=== PATIENT | female | born 1955 | race Caucasian/White ===

== ENCOUNTER 2016-07-15 00:10 | Inpatient (IN) | payer MEDICARE, OTHER ==
[~2016-07-15] VITALS: Ht 170.2 cm; Wt 88.8 kg
--- NOTE | 2016-07-15 01:37 | ED ORDER SUMMARY ---
..... Patient: VICTORIA CONNELL OrderSheet [facility] VisitID: [id number] [address] [place] [address] 61y, F Registration Date/Time: 07/15/2016 ORDER SHEET Weight: 102.0 kg Allergies: Ibuprofen, Paxil, PROzac, Tylenol, Ultram GENERAL ORDERS: Breathalyzer (00:26 07/15/2016 PHutchinson DO) (0:36 EBonham) Hip 2V Left w AP Pelvis Urgent (00:30 07/15/2016 PHutchinson DO) (0:36 EBonham) Chest 2V Urgent (02:24 07/15/2016 PHutchinson DO) (Ack 2:37 CHategekimana) (2:38 CBradburn R.N.) Electronics Supervisor (Continuous) (02:07/15/2016 PHutchinson DO) (2:29 CBradburn R.N.) UA-Culture if indicated Urgent (02:07/15/2016 PHutchinson DO) (Ack 2:37 CHategekimana) (3:00 CBradburn R.N.) Cardiac Panel Stat (02:07/15/2016 PHutchinson DO) (Ack 2:37 CHategekimana) (2:38 CBradburn R.N.) BNP Urgent (02:07/15/2016 PHutchinson DO) (Ack 2:37 CHategekimana) (2:38 CBradburn R.N.) Amylase Urgent (02:07/15/2016 PHutchinson DO) (Ack 2:37 CHategekimana) (2:38 CBradburn R.N.) PT with INR Urgent (02:07/15/2016 PHutchinson DO) (Ack 2:37 CHategekimana) (2:38 CBradburn R.N.) Urine Drug Screen Urgent (02:07/15/2016 PHutchinson DO) (Ack 2:37 CHategekimana) (3:00 CBradburn R.N.) TSH Urgent (02:07/15/2016 PHutchinson DO) (Ack 2:37 CHategekimana) (2:38 CBradburn R.N.) Ethyl Alcohol Urgent (02:25 07/15/2016 PHutchinson DO) (Ack 2:37 CHategekimana) (2:38 CBradburn R.N.) Lipase Urgent (02:25 07/15/2016 PHutchinson DO) (Ack 2:37 CHategekimana) (2:38 CBradburn R.N.) ABG (G) Urgent (02:25 07/15/2016 PHutchinson DO) (Ack 2:37 CHategekimana) (2:48 CBradburn R.N.) Oxygen (2 L/min) (NC) (02:25 07/15/2016 PHutchinson DO) (2:29 CBradburn R.N.) Pulse oximeter (02:25 07/15/2016 PHutchinson DO) (2:29 CBradburn R.N.) EKG - ER Stat (02:25 07/15/2016 PHutchinson DO) (2:36 CHategekimana) Vitals (02:25 07/15/2016 PHutchinson DO) (2:29 CBradburn R.N.) PCT (Procalcitonin) Urgent (02:50 07/15/2016 PHutchinson DO) (3:01 CBradburn R.N.) Old Records (from [facility] [place]) (02:51 07/15/2016 PHutchinson DO) (3:04 CHategekimana) D-Dimer Urgent (02:51 07/15/2016 PHutchinson DO) (3:01 CBradburn R.N.) CTA Thorax w Cont (No) (BUN and Cr normal) (elevated d-dimer; left cp, hypotension; hypoxia) Urgent (03:36 07/15/2016 PHutchinson DO) (Ack 3:42 CHategekimana) (4:04 CBradburn R.N.) Call (Place call to): (Dr Hanna) (05:04 07/15/2016 PHutchinson DO) (5:10 CHategekimana) Ammonia Level Urgent (05:04 07/15/2016 PHutchinson DO) (Ack 5:11 CHategekimana) (6:05 Kang R.N.) MEDICATION ORDERS: IV FLUIDS: IV NS : initial bolus 1000 mL (1000 mL/hr), then 500 mL/hr for X2 (NOW) (02:25 07/15/2016 Pascale ROGERS) (Ack 2:45 CBradwayne R.N.) (2:48 Kang R.N.) ORDER SHEET NOTES: [Electronically signed by Yvette Weston R.N. (06:33 07/15/2016)] [Electronically signed by Simon Wnyne DO (17:55 07/15/2016)] [Electronically locked/signed by Yvette Weston R.N. (06:33 07/15/2016)]
--- NOTE | 2016-07-15 01:37 | ED CLINICAL REPORT ---
Clinical Report - Physicians/Mid Levels [facility] [address] [place] [address] 07/15/2016 0:17 Patient: VICTORIA CONNELL Time Seen: 00:24. Arrived- By ambulance. Historian- patient and EMS personnel. HISTORY OF PRESENT ILLNESS Chief Complaint: FALL and Intoxicated. Location of injuries- left hip. The injury occurred just prior to arrival. Fell. Occurred at home. The patient complains of moderate pain. No blow to the head, neck pain, loss of consciousness or seizure. Not dazed. REVIEW OF SYSTEMS The patient complains of pain on weight bearing. No numbness, dizziness, loss of vision, hearing loss or difficulty breathing. No weakness, headache, nausea, abdominal pain or laceration. No fever, vomiting or urinary problems. The patient has had chest pain (she had recent rib fractures). All systems otherwise negative, except as recorded above. PAST HISTORY PROBLEMS: Anxiety Reaction. PTSD. Mental Illness. Anemia. Hep C with cirrhosis and end stage liver disease with esophageal varices. Changed Mental Status Spinal Fracture. Chronic Back Pain. UTI - Urinary Tract Infection (multiple). Fibromyalgia. Hepatitis. TMJ syndrome. Arthritis. Bipolar Disorder. Hypertension. Diverticulitis. Narcotic Withdrawal. Rib fractures - seen at [facility] for this 1 1/2 months ago per pt SURGERIES: Cholecystectomy. Colonoscopy. Endoscopy. Hysterectomy. Shoulder Surgery Appendectomy. Medications: ASA Oral 81 mg. Atenolol Oral (Tablet 25 mg) 3 tablets, 2x a day. LamoTRIgine Oral 1 200mg tab am 2 tabs HS. Lidocaine patch 12h on 12h off. Lisinopril Oral 40 mg, daily. Propranolol HCl Oral 20 mg, 2x a day. Solifenacin Succinate Oral 10mg, bid. TraZODone HCl Oral. Allergies: Ibuprofen. (has inflammation of liver) Paxil. PROzac. Tylenol. Ultram. (liver toxicity caused coma). SOCIAL HISTORY Smoker- current status unknown. Alcohol use. Patient is a longstanding alcoholic. No drug use. Is a local resident. FAMILY HISTORY Hypertension in grandparent; other family history (Substance abuse) in first-degree relative (mother and father). ADDITIONAL NOTES The nursing notes have been reviewed. PHYSICAL EXAM Vital Signs: 07/15/2016 00:32 BP: 95/52. HR: 70. RR: 16. O2 saturation: 93%. Appearance: Alert. Oriented X3. Patient in mild distress. (Strong odor of the metabolic breakdown products of alcohol on her breath). Head: Head non-tender. No swelling of head. No Kirk's sign or raccoon eyes. Eyes: Pupils equal, round and reactive to light. EOM intact. ENT: No dental injury. Neck: No pain with movement of head/neck. Painless ROM. Non-tender. Non-tender. No vertebral tenderness. CVS: Heart sounds normal. Pulses normal. Respiratory: Chest wall injury. Breath sounds normal. No decreased breath sounds, rales, wheezes, rhonchi or crepitus. Abdomen: No visible injury. Soft and nontender. No mass. Back: No tenderness. ROM normal. No vertebral point tenderness. Skin: Skin intact. Skin warm and dry. Extremities: Pelvis stable. Left hip: moderate tenderness, mild swelling and medium sized ecchymosis located in the lateral aspect of the hip. Neurovascular intact distally. No erythema, laceration, abrasion, puncture wound or foreign body. No deformity. No limitation in ROM. The left leg is not shortened, externally rotated, internally rotated, flexed or adducted. The left leg is not abducted. Neuro: Sonja Coma Scale: 15- eyes open spontaneously (4); best verbal response- oriented x 3 (5); best motor response- obeys commands (6). Oriented X 3. No motor deficit. No sensory deficit. LABS, X-RAYS, AND EKG EKG: EKG time: (02:35). Normal sinus rhythm. Rate: 65. First-degree atrioventricular block. Normal QRS complex. Normal axis. Non-specific ST segment / T wave abnormalities. Non-specific T wave flattening in lead III, aVL, aVF, V2 and V3. EKG unchanged when compared with prior EKG. (similar to 31 AUG 2012). The study has been interpreted contemporaneously by me. The EKG appears to be a good tracing. Artifact present. Lt Hip X-ray: No fracture. Normal alignment. No bony lesion, air in the soft tissue or foreign body. Soft tissues normal. Joint spaces normal. Views: 2 view hip series. Technique: good. The X-rays were interpreted contemporaneously by me. CTA Pulmonary Arteries: Parenchymal abnormality present (scaring and atelectasis). Great vessels normal. No evidence of pulmonary embolism. Normal heart size. Mediastinum normal. No infiltrate. No evidence of PE. Small Hiatal hernia. Probable cirrhosis. The CTA was performed with contrast. The study was independently viewed by me, interpreted by the radiologist and discussed with the radiologist. Laboratory Tests: UA-Culture if indicated: (SHAKIR: 07/15/2016 02:56) ( [facility] 07/15/2016 03:22) Final results Test Result Flag Units (Reference) URINE COLOR YELLOW URINE APPEARANCE CLEAR URINE GLUCOSE NEGATIVE (NEGATIVE) URINE BILIRUBIN NEGATIVE (NEGATIVE) URINE KETONE NEGATIVE (NEGATIVE) URINE SPECIFIC GRAVITY <= 1.005 L (1.010-1.030) URINE PH 6.0 (5.0-8.0) URINE PROTEIN NEGATIVE (NEGATIVE) URINE UROBILINOGEN 0.2 EU/dL (0.2-1.0) URINE NITRITE NEGATIVE (NEGATIVE) URINE BLOOD NEGATIVE (NEGATIVE) URINE LEUK ESTERASE NEGATIVE (NEGATIVE) URINE RBC NONE SEEN rbc/hpf (0-1) URINE WBC 0-1 wbc/hpf (0-1) URINE EPITHELIAL CELLS 1-3 EPI/hpf (0-5) URINE BACTERIA TRACE (<1+) (NONE SEEN) URINE COMMENT CULT NOT INDICATED 15-20 HYALINE CASTS. 1+ AMORPHOUS URATES.URINE CULTURES ARE SET-UP BASED ON THE FOLLOWING CRITERIA:POSITIVE NITRITEPOSITIVE LEUKOCYTE ESTERASEGREATER THAN 10 WHITE BLOOD CELLSMODERATE (2+) OR GREATER BACTERIA CBC w Diff: (SHAKIR: 07/15/2016 02:33) ( [facility] 07/15/2016 02:47) Final results Test Result Flag Units (Reference) WHITE BLOOD COUNT 3.3 L K/uL (4.5-11.5) RED BLOOD COUNT 3.63 L M/uL (4.00-5.20) HEMOGLOBIN 12.3 gm/dL (12.0-16.0) HEMATOCRIT 36.0 % (36.0-46.0) MEAN CELL VOLUME 99 fL (80-100) MEAN CORPUSCULAR HGB 34 pg (26-34) MEAN CORPUSCULAR HGB CONC 34 g/dL (31-37) RED CELL DISTRIBUTION WIDTH 16.1 H % (11.6-14.8) PLATELET COUNT 207 K/uL (150-400) NEUTROPHIL % 36.9 L % (50-75) LYMPH % 43.7 H % (25-40) MONO % 17.5 H % (3-14) EOSINOPHIL % 1.5 % (0-4) BASOPHIL % 0.4 % (0-2) [id number]: (SHAKIR: 07/15/2016 02:23) ( [facility] 07/15/2016 03:04) Final results Test Result Flag Units (Reference) D-DIMER QUANTITATIVE 3.34 H ug/mLFEU (0.27-0.52) The primary value of this quantitative assay relates toits negative predictive value (i.e. exclusion) of pulmonaryembolism/deep vein thrombosis/DIC.Elevated levels of d-dimer may also occur with:, age, cancer, inflammation, liver disease,post-op, infection, hematoma, coronary disease, peripheralarteriopathy, bleeding disorders and thrombolytic treatment.Results should be correlated with other clinical andradiological data.Testing Methodology: Latex Immunoassay PT with INR: (SHAKIR: 07/15/2016 02:33) ( [facility] 07/15/2016 02:51) Final results Test Result Flag Units (Reference) INR 1.1 (0.8-1.2) Low Intensity Therapy: INR 1.5-2.0 PT range 18.5-23.1Mod.Intensity Therapy: INR 2.0-3.0 PT range 23.1-31.5High Intensity Therapy: INR 2.5-3.5 PT range 27.4-35.5High Intensity Therapy 2: INR 3.0-4.0 PT range 31.5-39.3 Ammonia Level: (SHAKIR: 07/15/2016 05:35) ( [facility] 07/15/2016 05:59) Final results Test Result Flag Units (Reference) AMMONIA 27 umol/L (11-32) [id number]: (SHAKIR: 07/15/2016 02:33) ( MsgRcvd 07/15/2016 03:19) Final results Test Result Flag Units (Reference) PROCALCITONIN < 0.05 ng/mL (0-0.5) PCT Concentration: Interpretation : Risk/option for action PCT <=0.5 ng/mL : Systemic : Low risk forinfection(sepsis): progression to severeis not likely. : systemic infection.Local bacterial : CAUTION-PCT levelsinfection is : below 0.5 ng/mL do notpossible. : exclude an infection,because localizedinfections (withoutsystemic signs) may beassociated with suchlow levels. If PCT ismeasured very earlyafter a bacterialchallenge (usually <6hours), these valuesmay still be low. Inthis case PCT shouldbe re-assessed 6-24hours later. PCT >0.5 and : Systemic infection: Moderate risk for<= 2 ng/mL : (sepsis) is : progression to severepossible, but : systemic infection.other conditions : The patient should beare known to : closely monitoredelevate PCT. : both clinically andby re-assessing PCTwithin 6-24 hours. PCT > 2 ng/mL : Systemic infection: High risk for(sepsis) is likely: progression to severeunless other : systemic infection.causes are known. : PCT >= 10 ng/mL : Important systemic: High likelihood ofinflammatory : severe sepsis orresponse, almost : septic shock.exclusively due to:severe bacterial :sepsis or septic :shock. : Urine Drug Screen: (SHAKIR: 07/15/2016 02:56) ( [facility] 07/15/2016 03:18) Final results Test Result Flag Units (Reference) AMPHETAMINE/METHAMPHETAMINE NEGATIVE (NEGATIVE) BARBITURATE NEGATIVE (NEGATIVE) BENZODIAZEPINE NEGATIVE (NEGATIVE) CANNABINOID NEGATIVE (NEGATIVE) COCAINE NEGATIVE (NEGATIVE) ECSTASY NEGATIVE (NEGATIVE) METHADONE NEGATIVE (NEGATIVE) OPIATE NEGATIVE (NEGATIVE) The urine drug screen is a qualitative screening test fordrug overdose and abuse. All screen results should beconsidered as presumptive.Drugs screened for are as follows:BenzodiazepinesCocaineAmphetamines/MetamphetaminesTHC (Tetrahydrocannabinol)OpiatesBarbituratesEcstasyMethadonePositive results are unconfirmed. For confirmation, notifythe lab for the specimen to be sent to the reference lab.All confirmations must be performed by a differentmethodology.The ingestion of natural herbal and plant productscontaining Ephedra/Ephedra metabolites can produce in urineone or more substances capable of cross reacting withamphetamine/methamphetamine immunoassays. These testsprovide a preliminary result only. A more specificalternative chemical method must be used to obtain aconfirmed analytical result. BNP: (SHAKIR: 07/15/2016 02:33) ( UtgRcvd 07/15/2016 03:00) Final results Test Result Flag Units (Reference) B-TYPE NATRIURETIC PEPTIDE 45.1 pg/ml (5-100) CHEM 13 PANEL: (SHAKIR: 07/15/2016 02:33) ( MsgRcvd 07/15/2016 03:06) Final results Test Result Flag Units (Reference) GLUCOSE 93 mg/dL (70-110) BUN 9 mg/dL (7-18) CREATININE 1.0 mg/dL (0.6-1.3) Estimated GFR 59.52 mL/min Estimated GFR- >60 mL/min Note: Persistent reduction over 3 months in eGFR<60 mL/min/1.73 m2 defines CKD. Patients with eGFR values>=60 mL/min/1.73 m2 may also have CKD if evidence ofpersistent proteinuria. Additional information may be foundat www.kidney.org. SODIUM 143 mmol/L (136-145) POTASSIUM 3.7 mmol/L (3.5-5.1) CHLORIDE 107 mmol/L (98-107) CARBON DIOXIDE 24 mmol/L (21-32) CALCIUM 8.2 L mg/dL (8.5-10.1) TOTAL PROTEIN 7.5 g/dL (6.4-8.2) ALBUMIN 3.2 L g/dL (3.3-5.0) BILIRUBIN, TOTAL 0.4 mg/dL (0.0-1.0) ALKALINE PHOSPHATASE 130 H U/L (46-116) AST (SGOT) 114 H U/L (15-37) ALT (SGPT) 56 U/L (12-78) CPK 60 U/L (24-260) MAGNESIUM 2.1 mg/dL (1.8-2.4) LIPASE 176 U/L (73-393) AMYLASE 40 U/L (25-115) TROPONIN I <0.05 ng/mL (0.00-1.5) TROPONIN REFERENCE RANGE:<0.1 NEGATIVE0.1-1.5 INDETERMINANT>1.5 POSITIVE ETHYL ALCOHOL 231 H mg/dL (3-10) THYROID STIMULATING HORMONE 1.445 uIU/mL (0.30-3.74) ABG: (SHAKIR: 07/15/2016 02:25) ( MsgRcvd 07/15/2016 02:56) Final results Test Result Flag Units (Reference) FIO2 28 % (20-101) ABG MODE OF DELIVERY NC MODIFIED CEDRIC TEST POSITIVE? YES LITERS PER MIN. 2 L/MIN (0-20) ABG PATIENT RESP RATE 14 /MIN ABG TEMPERATURE 37 C ARTERIAL BLOOD GAS SITE LR ARTERIAL BLOOD GAS pH 7.38 (7.35-7.45) ABG PCO2 41.3 mmHg (35-45) ABG PO2 98.2 H mmHg (60.0-80.0) ABG BASE EXCESS -1.0 H mmol/L (-6.0--6.0) ABG HCO3 24.2 mmol/L (20.0-26.0) ABG TCO2 25.4 mmol/L (24.0-30.0) ABG EiQaJ1d 54.6 H mmHg (7.0-14.0) *NOTE: Normal rangeis based on aFIO2 of 21% ABG SAT O2 97.8 % (95.1-100.0) ABG TOTAL HEMOGLOBIN 12.6 g/dL (12.0-16.0) ABG O2 HEMOGLOBIN 94.4 L % (95.0-100.0) ABG CARBOXYHEMOGLOBIN 3.1 H % (0.5-1.5) ABG METHEMOGLOBIN 0.4 % (0.4-1.5) ABG RHEMOGLOBIN 2.1 % . Pulse Oximetry: 07/15/2016 02:11 O2 saturation: 92%. (FIO2-2 liter/min nasal cannula). Interpretation: hypoxemia. PROGRESS AND PROCEDURES Course of Care: 02:25 07/15/16. Pt noted to have decreased SBP <90 and lower O2 sat - however she is otherwise asymptomatic (except hip pain). She reports taking two beta blockers and an ACEI as prescribed, but, as she is intoxicated, this history may not be accurate (and it is unclear why she requires two different beta blockers). She also appears intoxicated, but could not perform a breathalyzer. She had a recent fall with rib fractures - seen at another facility for this. 05:16 07/15/16. Pt with recurrent hypotension of unclear etiology and still with O2 requirement. She will be placed in observation. Discussed case with hospitalist, (Jacques call returned 05:13). Reviewed test results. Agreed upon treatment plan and decision to place in observation. Health care provider will see patient in ED. Patient/family counseled. Old ED records reviewed. Transition orders written. Disposition: Discharged. Condition: stable and improved. CLINICAL IMPRESSION Idiopathic hypotension due to drugs. Chronic alcoholic liver disease with cirrhosis and nonbleeding esophageal varices. Multiple right and left rib fractures. Contusion to the left hip. Uncomplicated alcohol intoxication. No alcohol intoxication with delirium. Abnormal liver function test: AST/SGOT and alkaline phosphatase. Hypoxia. Fall on same level by tripping. Leukopenia with lymphocytosis. INSTRUCTIONS Your Current Medications: STOP TAKING THE FOLLOWING MEDICATIONS: Atenolol Oral : Tablet 25 mg, 3 tablets 2x a day. Propranolol HCl Oral : 20 mg 2x a day. CONTINUE TAKING THE FOLLOWING MEDICATIONS: ASA Oral : 81 mg. LamoTRIgine Oral : 1 200mg tab am 2 tabs HS. Lidocaine patch 12h on 12h off*. Lisinopril Oral : 40 mg daily. Solifenacin Succinate Oral : 10mg bid. TraZODone HCl Oral. (Electronically signed by Simon Wynne DO 07/15/2016 17:56)
--- NOTE | 2016-07-15 01:37 | ED ORDER SUMMARY ---
..... Patient: VICTORIA CONNELL OrderSheet [facility] VisitID: [id number] [address] [place] [address] 61y, F Registration Date/Time: 07/15/2016 ORDER SHEET Weight: 102.0 kg Allergies: Ibuprofen, Paxil, PROzac, Tylenol, Ultram GENERAL ORDERS: Breathalyzer (00:26 07/15/2016 PHutchinson DO) (0:36 EBonham) Hip 2V Left w AP Pelvis Urgent (00:30 07/15/2016 PHutchinson DO) (0:36 EBonham) Chest 2V Urgent (02:24 07/15/2016 PHutchinson DO) (Ack 2:37 CHategekimana) (2:38 CBradburn R.N.) Gear Shaper Set Up Operator (Continuous) (02:07/15/2016 PHutchinson DO) (2:29 CBradburn R.N.) UA-Culture if indicated Urgent (02:07/15/2016 PHutchinson DO) (Ack 2:37 CHategekimana) (3:00 CBradburn R.N.) Cardiac Panel Stat (02:07/15/2016 PHutchinson DO) (Ack 2:37 CHategekimana) (2:38 CBradburn R.N.) BNP Urgent (02:07/15/2016 PHutchinson DO) (Ack 2:37 CHategekimana) (2:38 CBradburn R.N.) Amylase Urgent (02:07/15/2016 PHutchinson DO) (Ack 2:37 CHategekimana) (2:38 CBradburn R.N.) PT with INR Urgent (02:07/15/2016 PHutchinson DO) (Ack 2:37 CHategekimana) (2:38 CBradburn R.N.) Urine Drug Screen Urgent (02:07/15/2016 PHutchinson DO) (Ack 2:37 CHategekimana) (3:00 CBradburn R.N.) TSH Urgent (02:07/15/2016 PHutchinson DO) (Ack 2:37 CHategekimana) (2:38 CBradburn R.N.) Ethyl Alcohol Urgent (02:25 07/15/2016 PHutchinson DO) (Ack 2:37 CHategekimana) (2:38 CBradburn R.N.) Lipase Urgent (02:25 07/15/2016 PHutchinson DO) (Ack 2:37 CHategekimana) (2:38 CBradburn R.N.) ABG (G) Urgent (02:25 07/15/2016 PHutchinson DO) (Ack 2:37 CHategekimana) (2:48 CBradburn R.N.) Oxygen (2 L/min) (NC) (02:25 07/15/2016 PHutchinson DO) (2:29 CBradburn R.N.) Pulse oximeter (02:25 07/15/2016 PHutchinson DO) (2:29 CBradburn R.N.) EKG - ER Stat (02:25 07/15/2016 PHutchinson DO) (2:36 CHategekimana) Vitals (02:25 07/15/2016 PHutchinson DO) (2:29 CBradburn R.N.) PCT (Procalcitonin) Urgent (02:50 07/15/2016 PHutchinson DO) (3:01 CBradburn R.N.) Old Records (from [facility] [place]) (02:51 07/15/2016 PHutchinson DO) (3:04 CHategekimana) D-Dimer Urgent (02:51 07/15/2016 PHutchinson DO) (3:01 CBradburn R.N.) CTA Thorax w Cont (No) (BUN and Cr normal) (elevated d-dimer; left cp, hypotension; hypoxia) Urgent (03:36 07/15/2016 PHutchinson DO) (Ack 3:42 CHategekimana) (4:04 CBradburn R.N.) Call (Place call to): (Dr Hanna) (05:04 07/15/2016 PHutchinson DO) (5:10 CHategekimana) Ammonia Level Urgent (05:04 07/15/2016 PHutchinson DO) (Ack 5:11 CHategekimana) (6:05 Kang R.N.) MEDICATION ORDERS: IV FLUIDS: IV NS : initial bolus 1000 mL (1000 mL/hr), then 500 mL/hr for X2 (NOW) (02:25 07/15/2016 Pascale ROGERS) (Ack 2:45 CBradwayne R.N.) (2:48 Kang R.N.) ORDER SHEET NOTES: [Electronically signed by Yvette Weston R.N. (06:33 07/15/2016)] [Electronically signed by Simon Wynne DO (17:55 07/15/2016)] [Electronically locked/signed by Yvette Weston R.N. (06:33 07/15/2016)]
--- NOTE | 2016-07-15 01:37 | ED NURSING NOTES ---
Clinical Report - Nurses [facility] [address] [place] [address] 07/15/2016 0:17 Patient: VICTORIA CONNELL TRIAGE Triage time 0020. Chief Complaint: FALL. --00:31 Nessa Clemente Acuity: LEVEL 4. --00:33 Nessa Clemente 00:32 07/15/16. BP: 95/52. HR: 70. RR: 16. O2 saturation: 93%. Pain level now 10/16. --00:33 Nessa Clemente Alert. --00:33 Nessa Clemente. Weight: 102 kg. Height/Length: 67 inches. BMI: 35.3. --00:27 Nessa Clemente. Medications ASA Oral 81 mg. Atenolol Oral (Tablet 25 mg) 3 tablets, 2x a day. LamoTRIgine Oral 1 200mg tab am 2 tabs HS. Lidocaine patch 12h on 12h off. Lisinopril Oral 40 mg, daily. Propranolol HCl Oral 20 mg, 2x a day. Solifenacin Succinate Oral 10mg, bid. TraZODone HCl Oral. --00:29 Nessa Clemente. Medication/allergy information source: the patient. --00:31 Nessa Clemente. Allergies Ibuprofen. (has inflammation of liver) Paxil. PROzac. Tylenol. Ultram. (liver toxicity caused coma) --00:29 Nessa Clemente. History Arrived by EMS. Historian: EMS and patient. Location of injuries: left hip. This occurred (1900). She has had trouble walking. Limited ROM present. Treatment [employer]: None. Trauma activation: Pre-hospital notification of patient arrival was received. SOCIAL HX: Heavy tobacco smoker (cigarette)- 1 pack per day. --00:31 Nessa Clemente SOCIAL HX: Heavy alcohol use; consumes 12-pack of beer a day and one liquor bottle. Last drink was just prior to arrival. Patient is a longstanding alcoholic. Patient smells of ETOH in the emergency department. --00:46 Nessa Clemente. PROBLEMS: Fall. Sprain. Anxiety Reaction. Mental Illness. Anemia. Hep C. Changed Mental Status. LNMP - Last Normal Menstrual Period. Spinal Fracture. Chronic Back Pain. Fibromyalgia. Hepatitis. Bipolar Disorder. Hypertension. Narcotic Withdrawal. --00:30 Nessa Clemente. ADDITIONAL SURGERIES: Cholecystectomy. Colonoscopy. Endoscopy. Hysterectomy. Shoulder Surgery. --00:30 Nessa Clemente. Interventions ID band on patient. To treatment room. --00:33 Nessa Clemente. PHYSICAL ASSESSMENT To room via stretcher. GENERAL / NEURO / PSYCH: Alert. Oriented X 4. Appears in distress. HEENT: Pupils equal, round and reactive to light. Head non-tender. RESPIRATORY: Respirations not labored. Chest nontender. Breath sounds within normal limits. CVS: Normal heart rate and rhythm. Pulses within normal limits. Capillary refill less than 2 seconds. GI / : Abdomen nontender. SKIN: Skin is warm and dry. --00:35 Nessa Clemente. NURSING PROGRESS NOTES Call light placed in reach. Side rails up x 2. Bed placed in lowest position. Brakes of bed on. Care transferred. --00:36 Nessa Clemente 02:11 07/15/16. BP: 79/49 (regular adult cuff) taken on the left arm, while lying. ED physician notified. HR: 69. RR: 16. O2 saturation: 92%. Temp: deferred. Pain level now: 010. --02:25 Yvette Weston R.N. 02:12 07/15/16. BP: 88/59 taken on the right arm, while lying. HR: 68 (regular and normal rate). RR: 14. O2 saturation: 97% on nasal cannula at 2 liters/minute. Temp: deferred. Pain level now: 04/18. --02:26 Yvette Weston R.N. Overall patient status is worse. ( pt VS decreased MD notified and orders received. pt A&O x4, no distress noted at this time, will continue to monitor.). --02:28 Enrico, Yvette, R.N. Patient transported to radiology by stretcher with tech. (02:35). --02:39 Yvette Weston R.N. 02:40 07/15/2016 Site #1 started via IV in the right hand with an 22g angiocath, with aseptic technique and good blood return; two attempts. Blood drawn: rainbow set. Sent to the lab. Saline lock flushed with saline. --02:40 Tyrell Almendarez 02:48 07/15/2016 Started bag #1 1000 mL IV Fluids IV NS (Saline); bolus of 1000 mL over 1 hour(s) via site #1 via IV pump. Allergies verified and confirmed 5 rights. IV patency established. IV site checked: no pain, redness, or swelling. IV flushed thoroughly pre- and post-medication administration. --02:48 Yvette Weston R.N. 02:50 07/15/16. BP: 117/70 taken on the right arm, while lying. HR: 68 (regular and normal rate). RR: 18 (regular, unlabored and slow). O2 saturation: 94% on nasal cannula at 2 liters/minute. Temp: 97.6 F (oral). Pain level now: 10/16. --02:52 Yvette Weston R.N. 8 fr in/out catheterization. Return of less than 50 mL yellow-colored cloudy urine. She tolerated procedure well. --02:59 Yvette Weston R.N. EKG time: (0235 AM). EKG was ordered, performed by a tech and shown to the ED physician. --03:06 Kimberli Martinez 03:34 07/15/2016 Site #2 started via IV in the right with an 20g angiocath, with aseptic technique and good blood return; one attempt. Saline lock flushed with 10 mL saline. --03:34 Yvette Weston R.N. 03:33 07/15/16. BP: 104/69 taken on the left arm, while lying. HR: 68 (regular and normal rate). RR: 18. O2 saturation: 98% on nasal cannula at 2 liters/minute. Temp: deferred. Pain level now: 04/18. --03:35 Yvette Weston R.N. 04:03 07/15/2016 Started bag #1 1000 mL IV Fluids IV NS (Saline); at 500 mL/hr over 2 hour(s) via site #1 via IV pump. Allergies verified and confirmed 5 rights. IV patency established. IV site checked: no pain, redness, or swelling. IV flushed thoroughly pre- and post-medication administration. --04:03 Yvette Weston R.N. 04:03 07/15/2016 IV Fluids IV NS Discontinued: bag #1 completed. Total amount infused: 1000 mL. IV patency established. IV site checked: no pain, redness, or swelling. IV flushed thoroughly. --04:03 Yvette Weston R.N. Patient transported to [place] by stretcher with O2 and tech. (04:04). --04:04 Yvette Weston R.N. 04:24 07/15/16. BP: 100/65 (regular adult cuff) taken on the left arm, while lying. HR: 68 (regular and normal rate). RR: 16 (regular, unlabored and slow). O2 saturation: 94% on nasal cannula at 2 liters/minute. Temp: 97.8 F (oral). Pain level now: 10/16. --04:27 Yvette Weston R.N. ( pt given warm blankets, placed back on monitors, IVF running). GENERAL / NEURO / PSYCH: The patient reports pain that is located in the left hip (right rib pain). Patient returned from CT by stretcher with O2 and tech. (04:27). --04:27 Yvette Weston R.N. The patient is resting quietly. Overall patient status is the same- she states feels the same. --05:00 Yvette Weston R.N. 04:59 07/15/16. BP: 87/54 taken on the left arm, while lying. HR: 67 (regular and normal rate). RR: 18. O2 saturation: 97% on nasal cannula at 2 liters/minute. Temp: deferred. Pain level now: 10/16. --05:00 Yvette Weston R.N. 05:27 07/15/16. BP: 88/64 taken on the left arm, while lying. ED physician notified. HR: 74 (regular and normal rate). RR: 18 (regular, unlabored and normal). O2 saturation: 97%. Temp: deferred. Pain level now: 10/16. Additional comments: hospitalist at bedside. --05:29 Yvette Weston R.N. Overall patient status is the same- she states feels the same. GENERAL / NEURO / PSYCH: Alert. CVS: Capillary refill less than 2 seconds. EXTREMITIES: Neuro-vascular status intact to the extremity. Two patient identifiers checked. Call light placed in reach. Side rails up x 2. Bed placed in lowest position. Brakes of bed on. --05:29 Yvette Weston R.N. 06:08 07/15/16. BP: 101/68 (regular adult cuff) taken on the left arm, while lying. HR: 70 (regular and normal rate). RR: 18 (regular and unlabored). O2 saturation: 97% on nasal cannula at 2 liters/minute. Temp: deferred. Pain level now: 10/16. --06:10 Yvette Weston R.N. The patient reports no complaints. Overall patient status is the same- she states feels the same. GENERAL / NEURO / PSYCH: Alert. --06:10 Yvette Weston R.N. 06:20 07/15/2016 IV Fluids IV NS Discontinued: bag #2 completed. Total amount infused: 1000 mL. IV patency established. IV site checked: no pain, redness, or swelling. IV flushed thoroughly. --06:20 Tyrell Almendarez Intake & Output Urine: voided, with return of 300 mL yellow-colored cloudy urine. --04:05 Yvette Weston R.N. DISPOSITION / DISCHARGE Departure time: 621. Admitted to Acute Care (207). Transported via stretcher by tech with O2. Report was given to a nurse via a phone call. Report included patient's care, treatment, medications, reviewed medication reconcilliation, and condition (including any recent changes or anticipated changes). All questions were answered. Report was acknowledged and care was transferred. (Kiarra). --06:32 Yvette Weston R.N. 06:15 07/15/16. BP: 92/64 taken on the left arm, while lying. HR: 68 (regular and normal rate). RR: 18 (regular and unlabored). O2 saturation: 94% on nasal cannula at 2 liters/minute. Temp: deferred. Pain level now: 09/15. --06:32 Yvette Weston R.N. Locked/Released at 07/15/2016 6:33 by Yvette Weston R.N.
--- NOTE | 2016-07-15 06:16 | DIAGNOSTIC IMAGING REPORT ---
PROCEDURE: XR HIP 2VW W W/O AP PELVIS-LT INDICATION: TRAUMA/INJURY TECHNIQUE: AP view of the pelvis and hips with lateral view of the left hip. COMPARISON: None. FINDINGS: LEFT HIP: Osseous structures and joint spaces are normal. PELVIS: Osseous pelvis is normal. Calcification in the left lower pelvis consistent with phleboliths. IMPRESSION: 1. Negative pelvis and left hip.
[2016-07-15 06:33] VITALS: BP 102/61
--- NOTE | 2016-07-15 06:53 | DIAGNOSTIC IMAGING REPORT ---
PROCEDURE: CTA THORAX WITH CONTRAST INDICATION: Left chest pain. Shortness of breath. Elevated D-dimer (3.34). History of EtOH. TECHNIQUE: 92 ml of Isovue 370 was injected intravenously and axial images were obtained of the entire thorax with 3D sagittal and coronal MIP reconstructions. Preliminary report was provided by Rhoda Cisse MD ([facility]). COMPARISON: Comparison is made to chest x-ray earlier today. FINDINGS: There is a subsegmental atelectasis in the right lateral lung and lung base, and left posterior lung base. Lungs otherwise clear. Pulmonary vessels are normal and there is no evidence of pulmonary embolus. Heart and mediastinum are normal. There is an acute fracture of the left posterior 11th rib. In addition, there are multiple subacute or nonhealing rib fractures (right posterior 4th - 9th ribs, right anterior 5th- 6th; left anterior 5th - 7th ribs). There are mild degenerative changes of the thoracic spine. Status post cholecystectomy. Findings suggest cirrhosis of the liver. IMPRESSION: 1. There is a fracture of the left posterior 11th rib which is most likely acute. 2. There are multiple bilateral subacute or nonhealing rib fractures. 3. Mild bibasilar atelectasis. 4. Normal pulmonary vessels. No evidence of pulmonary embolus. 5. Status post cholecystectomy. 6. Findings suggest cirrhosis of the liver. 7. Findings discussed with Dr. Wynne. All CT scans at this facility use dose modulation, iterative reconstruction, and/or weight-based dosing when appropriate to reduce radiation dose to as low as reasonably achievable.
--- NOTE | 2016-07-15 06:55 | HISTORY AND PHYSICAL ---
ADMITTED: 07/15/2016 CHIEF COMPLAINT: 1. Fall. HISTORY OF PRESENT ILLNESS: This is a 61-year-old white female who has been drinking heavily and last night, at least 1 pint of whiskey, and becoming intoxicated and suffered a fall and had some hip pain, so the patient was transferred to emergency department. On evaluation was found to be hypotensive and hypoxia, so the patient is being admitted for evaluation of these problems. MEDICAL/SURGICAL HISTORY: Past medical history: Remarkable for hypertension, hepatitis C, stroke, degenerative joint disease of multiple joints and osteoporosis, anemia, bipolar disease. Past surgical history: Remarkable for appendectomy, cholecystectomy., hysterectomy, shoulder surgery. Hospitalization: The patient cannot remember the last hospitalization. MEDICATIONS: 1. Aspirin 81 mg once a day. 2. Lamictal 200 mg in the morning and at bedtime. 3. Lisinopril 40 mg daily. 4. Propranolol 20 mg twice a day. 5. Solifenacin succinate 10 mg twice a day. 6. Trazodone, dosage is not known. ALLERGIES: 1. IBUPROFEN. 2. PAXIL. 3. PROZAC. 4. TYLENOL. 5. ULTRAM OR TRAMADOL. SOCIAL HISTORY: The patient is single, has 4 kids, has been drinking alcohol for 2 years, heavy drinking, smoking half pack a day for 40 years. Denied any drug abuse. FAMILY HISTORY: Remarkable for diabetes, prostate cancer, and hypertension. REVIEW OF SYSTEMS: Has been gaining weight recently. No difficulty with vision or hearing. No runny nose or congestion, cough or sore throat, complains of shortness of breath that has been going on over 2 years, but etiology is not known. No chest pains. Occasional palpitations, chronic nausea, no vomiting, no indigestion. No abdominal pain. Normal regular bowel movements. No dysuria, frequency, but urinary incontinence, generalized arthralgia headaches. Some tingling and numbness in the feet. No dizziness. No localized weakness. No syncope. PHYSICAL EXAMINATION: VITAL SIGNS: Blood pressure is in the 90s/50s. Heart rate is 70, respirations 16 , oxygen saturation is 93% on 2-3 liters with 80 on room air, temperature is not charted. GENERAL APPEARANCE: Well developed, well nourished, good body build, no acute distress. HEENT: Ears: Normal tympanic membranes. Mouth: Normal hypopharynx, no exudation, no erythema. Nose: Normal mucosa. NECK: Supple. No JVD. No carotid bruit. No palpable mass. SKIN: Warm and dry with good turgor. LUNGS: Crackles on both bases, otherwise clear to auscultation. HEART: Regular S1 and S2. No murmur. No S3 was heard. ABDOMEN: Soft, nontender. Bowel sounds are positive. EXTREMITIES: No edema. Good peripheral pulses. No signs of DVT. MUSCULOSKELETAL: Grossly within normal limits except generalized pain. NEUROLOGIC: Alert and oriented x3. Cranial nerves are grossly intact. Motor deficits in lower extremities bilaterally, but the patient states that this is chronic and has been going on for several years and etiology is not known. Pupils are equal, round, and reactive to light. Extraocular movements are intact. No nystagmus. No cerebellar signs. Deep tendon reflexes are bilateral and symmetric. LAB/IMAGING: EKG shows normal sinus rhythm. Chest x-ray is unremarkable. No signs of pneumonia. CT angiogram was done due to high D-dimer, which is normal. Left hip x-ray, no fracture, negative, normal x-ray. UA is unremarkable. White blood count is 3.3, hemoglobin is 12.3, hematocrit 36.0, platelet count is 207. D-dimer is 3.34. INR is 1.1. Procalcitonin is less than 0.05. Urine drug screen is negative. Alcohol level is extremely high. BNP is 45.1. Glucose is 93, BUN is 9, creatinine 1. Sodium is 143, potassium is 3.7, chloride is 107, CO2 is 24, calcium is 8.2. Liver enzymes are elevated. Magnesium is 2.1. Amylase and lipase is normal. Troponin is less than 0.05. TSH is 1.4. ABG is 20% of FIO2, pH is 7.38, pCO2 is 41.3, pO2 is 98.2, bicarbonate is 24, and saturation is 97.6. IMPRESSION: 1. Hypotension 2. Hypoxia 3. Alcohol intoxication 4. History of hypertension 5. Anemia 6. Hepatitis C PLAN: The etiology of the hypoxia is not known. The patient is a long-term smoker could be the beginning of chronic obstructive pulmonary disease or also cardiomyopathy , so we will get the echocardiogram and PFT. I will put the patient on DuoNeb and oxygen. Hypotension could be overtreatment with blood pressure medication and alcohol intoxication and hydration, so will hold blood pressure medication and continue IV hydration. We will do troponin series and will follow the patient in the hospital.
--- NOTE | 2016-07-15 06:56 | DIAGNOSTIC IMAGING REPORT ---
PROCEDURE: XR CHEST 2 VIEW INDICATION: SHORTNESS OF BREATH TECHNIQUE: PA and lateral views. COMPARISON: Compared to chest x-ray on 04/02/2012. FINDINGS: Lungs are clear. Heart and mediastinum are normal. Findings suggest a subacute fracture of the right anterior fifth rib. IMPRESSION: 1. Probable subacute fracture of the right anterior fifth rib. 2. Otherwise negative chest. 3. Findings discussed with Dr. Wynne.
--- NOTE | 2016-07-15 07:42 | Progress Note ---
Subjective General Note Date: 2016 Admission Date: 07/15/2016 Hospital Day: PCP: Advanced Directive: In Patient Acute Care Room: 61-year-old white female with a significant past medical history of who presented to [facility] emergency department on the day of admission with the above chief complaint. [facility] ER evaluation was consistent with Secondary to the above , the patient was admitted by Judah Hanna M.D. for further evaluation and treatment. Subjective Patient is reporting of multiple pains secondary to a fall. Patient has multiple rib fractures. Patient states that her last alcoholic beverage was the evening or to her admission. Patient states that she was sober for nearly 25 years and then began drinking again. Patient was taken in at least a pint of whiskey a night +3-4 beers. Patient denies any other illicit drug use at this time. Patient's wishes to become sober. Reports that she had DTs nearly 20-25 years ago. Physical Exam Vital Signs / I&Os Vital Signs Date Time Temp Pulse Resp B/P Pulse O2 O2 Flow FiO2 Ox Delivery Rate 07/15 0540 Nasal 1.0 Cannula 07/15 0533 98.2 73 21 102/61 96 Nasal 1.0 Cannula 07/15 0256 2.0 General Appearance Oriented X3, Mild distress HEENT EOMI Lungs Clear to auscultation Cardiovascular Regular rate and rhythm, Normal S1 and S2 Skin multiple bruises on the upper torso LAB Results Laboratory Tests 07/15 07/15 07/15 07/15 0223 0225 0233 0233 Blood Gas Sample Site LR Total CO2 (24.0 - 30.0 mmol/L) 25.4 ABG pH (7.35 - 7.45) 7.38 ABG pCO2 at Pt Temp (35 - 45 mmHg) 41.3 ABG pO2 at Pt Temp (60.0 - 80.0 mmHg) 98.2 ABG HCO3 (20.0 - 26.0 mmol/L) 24.2 ABG O2 Sat Calc/Adan (95.1 - 100.0 %) 97.8 ABG Base Excess (-6.0 - -6.0 mmol/L) -1.0 ABG Reduced Hgb (%) 2.1 ABG Carboxyhemoglobin (0.5 - 1.5 %) 3.1 ABG Methemoglobin (0.4 - 1.5 %) 0.4 Roly Test YES Other Total Hgb (12.0 - 16.0 g/dL) 12.6 A-a O2 Gradient (7.0 - 14.0 mmHg) 54.6 Hgb O2 Saturation (95.0 - 100.0 %) 94.4 Temperature (C) 37 Respiration Rate (/MIN) 14 O2 Liters/Min (0 - 20 L/MIN) 2 Vent Mode NC FiO2 (20 - 101 %) 28 Chemistry Plasma Sodium (136 - 145 mmol/L) 143 Plasma Potassium (3.5 - 5.1 mmol/L) 3.7 Plasma Chloride (98 - 107 mmol/L) 107 CO2 (Enzymatic) (21 - 32 mmol/L) 24 BUN (7 - 18 mg/dL) 9 Creatinine (0.6 - 1.3 mg/dL) 1.0 Est GFR ( Amer) (mL/min) >60 Est GFR (Non-Af Amer) (mL/min) 59.52 Glucose (70 - 110 mg/dL) 93 Plasma Calcium (8.5 - 10.1 mg/dL) 8.2 Plasma Magnesium (1.8 - 2.4 mg/dL) 2.1 Total Bilirubin (0.0 - 1.0 mg/dL) 0.4 AST (15 - 37 U/L) 114 ALT (12 - 78 U/L) 56 Alkaline Phosphatase (46 - 116 U/L) 130 Creatine Kinase (24 - 260 U/L) 60 Troponin (0.00 - 1.5 ng/mL) <0.05 B-Natriuretic Peptide (5 - 100 pg/ml) 45.1 Total Protein (6.4 - 8.2 g/dL) 7.5 Albumin (3.3 - 5.0 g/dL) 3.2 Amylase (25 - 115 U/L) Cancelled 40 Lipase (73 - 393 U/L) Cancelled 176 TSH 3rd Generation (0.30 - 3.74 uIU/mL) Cancelled 1.445 Coagulation INR (0.8 - 1.2) 1.1 D-Dimer, Quantitative (0.27 - 0.52 ug/mLFEU) 3.34 Hematology WBC (4.5 - 11.5 K/uL) 3.3 RBC (4.00 - 5.20 M/uL) 3.63 Hgb (12.0 - 16.0 gm/dL) 12.3 Hct (36.0 - 46.0 %) 36.0 MCV (80 - 100 fL) 99 MCH (26 - 34 pg) 34 RDW (11.6 - 14.8 %) 16.1 Neut % (Auto) (50 - 75 %) 36.9 Lymph % (Auto) (25 - 40 %) 43.7 Gosper % (Auto) (3 - 14 %) 17.5 Eos % (Auto) (0 - 4 %) 1.5 Baso % (Auto) (0 - 2 %) 0.4 Plt Count, EDTA (150 - 400 K/uL) 207 PUBS MCHC (31 - 37 g/dL) 34 Toxicology Plasma/Serum Ethyl Alc (3 - 10 mg/dL) Cancelled 231 07/15 07/15 07/15 0233 0256 0535 Chemistry Ammonia (11 - 32 umol/L) 27 Procalcitonin (0 - 0.5 ng/mL) < 0.05 Toxicology Urine Opiates Screen (NEGATIVE) NEGATIVE Urine Methadone Screen (NEGATIVE) NEGATIVE Ur Barbiturates Screen (NEGATIVE) NEGATIVE U Amphetamin/Meth Scrn (NEGATIVE) NEGATIVE MDMA (Ecstasy) Screen (NEGATIVE) NEGATIVE U Benzodiazepines Scrn (NEGATIVE) NEGATIVE Urine Cocaine Screen (NEGATIVE) NEGATIVE U Cannabinoids Screen (NEGATIVE) NEGATIVE Urines Urine Color YELLOW Urine Appearance CLEAR Urine pH (5.0 - 8.0) 6.0 Ur Specific Ocate (1.010 - 1.030) <= 1.005 Urine Protein (NEGATIVE) NEGATIVE Urine Ketones (NEGATIVE) NEGATIVE Urine Blood (NEGATIVE) NEGATIVE Urine Nitrite (NEGATIVE) NEGATIVE Urine Bilirubin (NEGATIVE) NEGATIVE Urine Urobilinogen (0.2 - 1.0 EU/dL) 0.2 Ur Leukocyte Esterase (NEGATIVE) NEGATIVE Urine RBC (0 - 1 rbc/hpf) NONE SEEN Urine WBC (0 - 1 wbc/hpf) 0-1 Ur Epithelial Cells (0 - 5 EPI/hpf) 1-3 Urine Bacteria (NONE SEEN) TRACE (<1+) Urine Glucose (NEGATIVE) NEGATIVE Urine Comment CULT NOT INDICATED Assessment and Plan Problem List 1. Hypoxemia Plan Hypoxia in the emergency department. Continue oxygen as needed. Titrate sats to 92%. 2. Hypotension Plan Patient found to be hypotensive in the emergency Department. Attempt to maintain blood pressure between 100 150 systolic. 3. Alcohol intoxication Plan Starting alcohol withdrawal protocol. Current status: Anticipated discharge date: Anticipated discharge in 2-3 days Anticipated discharge placement: Home Patient care time: Time spent in chart review, patient interview, physical exam, CPOE, and care documentation: 25 minutes Visit to patient today: 2 Complexity of care: Moderate Initial patient evaluation: Emergency department consultation GI/DVT prophylaxis
[2016-07-15 09:41] VITALS: BP 129/78
[2016-07-15 11:35] VITALS: BP 122/77
[2016-07-15] MEDS ORDERED: ASPIRIN 81 LOW81 MG PO (12:32)
[2016-07-15] MEDS ORDERED: ATENOLOL25 MG PO (12:33)
[2016-07-15] MEDS ORDERED: LAMICTAL100 MG PO (12:34)
[2016-07-15] MEDS ORDERED: LIDODERM5 % TOP (12:35)
[2016-07-15] MEDS ORDERED: INDERAL EQUIVAL20 MG PO (12:36)
[2016-07-15] MEDS ORDERED: LISINOPRIL10 MG PO (12:36)
[2016-07-15] MEDS ORDERED: VESICARE10 MG (12:38)
[2016-07-15] MEDS ORDERED: TRAZODONE HCL50 MG PO (12:39)
[2016-07-15 14:00] VITALS: BP 141/86
--- NOTE | 2016-07-15 17:56 | ED MAR SUMMARY ---
..... Medication Administration Record [facility] [address] [place] [address] Patient: VICTORIA CONNELL Visit ID: [id number] 61y, F Weight: 102.0 kg Height/Length: 67 in BMI: 35.3 ALLERGIES: Ibuprofen, Paxil, PROzac, Tylenol, Ultram Start 02:48 07/15/2016 Yvette Weston R.N., Stop 04:03 07/15/2016 Yvette Weston R.N. Medication Administered: IV NS (SALINE), Dose: IV Fluids, Bolus: 1000 mL over 1 hour(s), Dispensed: 1000 mL bag, Site: #1 right hand. Medication Ordered: IV NS : initial bolus 1000 mL (1000 mL/hr), then 500 mL/hr for X2 (NOW). Start 04:03 07/15/2016 Yvette Weston R.N., Stop 06:20 07/15/2016 Tyrell Almendarez Medication Administered: IV NS (SALINE), Dose: IV Fluids over 2 hour(s), Rate: 500 mL/hr, Dispensed: 1000 mL bag, Site: #1 right hand. Medication Ordered: IV NS : initial bolus 1000 mL (1000 mL/hr), then 500 mL/hr for X2 (NOW).
--- NOTE | 2016-07-15 17:56 | ED MAR SUMMARY ---
..... Medication Administration Record [facility] [address] [place] [address] Patient: VICTORIA CONNELL Visit ID: [id number] 61y, F Weight: 102.0 kg Height/Length: 67 in BMI: 35.3 ALLERGIES: Ibuprofen, Paxil, PROzac, Tylenol, Ultram Start 02:48 07/15/2016 Yvette Weston R.N., Stop 04:03 07/15/2016 Yvette Weston R.N. Medication Administered: IV NS (SALINE), Dose: IV Fluids, Bolus: 1000 mL over 1 hour(s), Dispensed: 1000 mL bag, Site: #1 right hand. Medication Ordered: IV NS : initial bolus 1000 mL (1000 mL/hr), then 500 mL/hr for X2 (NOW). Start 04:03 07/15/2016 Yvette Weston R.N., Stop 06:20 07/15/2016 Tyrell Almendarez Medication Administered: IV NS (SALINE), Dose: IV Fluids over 2 hour(s), Rate: 500 mL/hr, Dispensed: 1000 mL bag, Site: #1 right hand. Medication Ordered: IV NS : initial bolus 1000 mL (1000 mL/hr), then 500 mL/hr for X2 (NOW).
--- NOTE | 2016-07-15 17:56 | ED MED RECONCILIATION SUMMARY ---
Patient: VICTORIA CONNELL Medication Reconciliation Report [facility] VisitID: [id number] [address] [place] [address] 61y, F Registration Date/Time: 07/15/2016 Weight: 102.0 kg Height/Length: 67 in. BMI: 35.3 ALLERGIES: Ibuprofen, Paxil, PROzac, Tylenol, Ultram The patient's Home Medications are listed below: STOP TAKING THE FOLLOWING MEDICATIONS: Atenolol Oral (25 mg) 3 tablets, 2x a day Propranolol HCl Oral 20 mg, 2x a day CONTINUE TAKING THE FOLLOWING MEDICATIONS: ASA Oral 81 mg LamoTRIgine Oral 1 200mg tab am 2 tabs HS Lidocaine patch 12h on 12h off Lisinopril Oral 40 mg, daily Solifenacin Succinate Oral 10mg, bid TraZODone HCl Oral The source(s) of the original Home Medication information: patient The following Medications were given to the patient in the Emergency Department: IV NS IV Fluids bolus 1000 mL over 1 hour(s), administered: 07/15/2016 2:48:00 AM IV NS IV Fluids bolus 0, then 500 mL/hr, administered: 07/15/2016 4:03:00 AM The following Medications were prescribed to the patient: None.
--- NOTE | 2016-07-15 17:56 | ED MED RECONCILIATION SUMMARY ---
Patient: VICTORIA CONNELL Medication Reconciliation Report [facility] VisitID: [id number] [address] [place] [address] 61y, F Registration Date/Time: 07/15/2016 Weight: 102.0 kg Height/Length: 67 in. BMI: 35.3 ALLERGIES: Ibuprofen, Paxil, PROzac, Tylenol, Ultram The patient's Home Medications are listed below: STOP TAKING THE FOLLOWING MEDICATIONS: Atenolol Oral (25 mg) 3 tablets, 2x a day Propranolol HCl Oral 20 mg, 2x a day CONTINUE TAKING THE FOLLOWING MEDICATIONS: ASA Oral 81 mg LamoTRIgine Oral 1 200mg tab am 2 tabs HS Lidocaine patch 12h on 12h off Lisinopril Oral 40 mg, daily Solifenacin Succinate Oral 10mg, bid TraZODone HCl Oral The source(s) of the original Home Medication information: patient The following Medications were given to the patient in the Emergency Department: IV NS IV Fluids bolus 1000 mL over 1 hour(s), administered: 07/15/2016 2:48:00 AM IV NS IV Fluids bolus 0, then 500 mL/hr, administered: 07/15/2016 4:03:00 AM The following Medications were prescribed to the patient: None.
--- NOTE | 2016-07-15 17:56 | ED DISCHARGE INSTRUCTIONS ---
Patient: VICTORIA CONNELL General Instructions [facility] VisitID: [id number] [address] [place] [address] 61y, F Registration Date/Time: 07/15/2016 Idiopathic hypotension due to drugs. Chronic alcoholic liver disease with cirrhosis and nonbleeding esophageal varices. Multiple right and left rib fractures. Contusion to the left hip. Uncomplicated alcohol intoxication. No alcohol intoxication with delirium. Abnormal liver function test: AST/SGOT and alkaline phosphatase. Hypoxia. Fall on same level by tripping. Leukopenia with lymphocytosis. INSTRUCTIONS Your Current Medications: STOP TAKING THE FOLLOWING MEDICATIONS: Atenolol Oral : Tablet 25 mg, 3 tablets 2x a day. Propranolol HCl Oral : 20 mg 2x a day. CONTINUE TAKING THE FOLLOWING MEDICATIONS: ASA Oral : 81 mg. LamoTRIgine Oral : 1 200mg tab am 2 tabs HS. Lidocaine patch 12h on 12h off*. Lisinopril Oral : 40 mg daily. Solifenacin Succinate Oral : 10mg bid. TraZODone HCl Oral. ADDITIONAL INFORMATION Mechanical Fall You have had a fall today. It appears that the cause is mechanical. That means that you slipped, tripped or lost your balance. If your fall had been due to fainting or a seizure, further tests would be required. Home Care: Rest today and resume your normal activities when you are feeling back to normal. If you were injured during the fall, follow the advice from your doctor regarding care of your injury. You may use acetaminophen (Tylenol) or ibuprofen (Motrin, Advil) to control pain, unless another pain medicine was prescribed. [NOTE: If you have chronic liver or kidney disease or ever had a stomach ulcer or GI bleeding, talk with your doctor before using these medicines.] Fall Prevention: Was there anything that caused your fall that can be fixed, removed, or replaced? Make your home safe by keeping walkways clear of objects you may trip over. Use non-slip pads under rugs. Do not walk in poorly lit areas. Do not stand on chairs or wobbly ladders. Use caution when reaching overhead or looking upward. This position can cause a loss of balance. Be sure your shoes fit properly, have non-slip bottoms and are in good condition. Be cautious when going up and down curbs, and walking on uneven sidewalks. If your balance is poor, consider using a cane or walker. Stay as active as you can. Balance, flexibility, strength, and endurance all come from exercise. They all play a role in preventing falls. Follow Up with your doctor or as advised by our staff. Get Prompt Medical Attention if any of the following occur: Repeated mechanical falls, or unexplained falls Dizziness, fainting or seizure Severe headache Chest pain or shortness of breath Palpitations (very rapid or very slow or irregular heartbeat) Blood in vomit, stools (black or red color) Weakness of an arm or leg or one side of the face Difficulty with speech or vision Hip Contusion You have a contusion of the hip. This is a bruise with swelling and some bleeding under the skin. There are no fracture (broken bone) seen on the x-ray. This injury takes a few days to a few weeks to heal. Home Care If walking causes pain, use crutches or a walker until you can walk without pain. These items can be rented at most pharmacies and orthopedic supply stores. Apply an ice pack (ice cubes in a plastic bag, wrapped in a towel) over the injured area for 20 minutes every 1-2 hours the firstday. You should continue with ice packs 3-4 times a day for the next two days. Continue the use of ice packs for relief of pain and swelling as needed. You may use acetaminophen (Tylenol) or ibuprofen (Motrin, Advil) to control pain, unless another pain medicine was prescribed. [NOTE: If you have chronic liver or kidney disease or ever had a stomach ulcer or GI bleeding, talk with your doctor before using these medicines.] If you are not able to get to the bathroom easily or take care of your meal preparation, home health care may be available to provide in-home nursing services. Check with your doctor, the hospital's social service department or through private nursing agencies to see if your insurance will cover this kind of care. Follow Up Follow up with your doctor or as advised by our staff if your symptoms do not begin to improve after one week. A repeat x-ray or a CT-scan may be needed to check again for a fracture. [NOTE: If X-rays were taken, they will be reviewed by a radiologist. You will be notified of any new findings that may affect your care.] Get Prompt Medical Attention Get prompt medical attention if any of the following occur: Increased swelling or increased bruising Pain becomes worse Decreased ability to bear weight on the injured side Swelling or pain below your knee Chest pain or shortness of breath Alcohol Intoxication Alcohol intoxication occurs when you drink alcohol faster than your liver can remove it from your system. Alcohol intoxication affects your judgment and coordination. Very high blood alcohol levels can cause coma, very slow breathing and even . If you drink alcohol every day, this may gradually cause permanent damage to your liver, brain, heart, pancreas and other organs. Alcohol use during may cause permanent damage to the growing baby. Home Care: Do not drink any more alcohol. DO NOT DRIVE until all effects of the alcohol have worn off. Get lots of rest over the next few days. Drink plenty of water and other non-alcoholic liquids. Try to eat regular meals. If you have been drinking heavily on a daily basis, you may go through alcohol withdrawl. This is also called the shakes or DTs. The usual symptoms last 3 to 4 days and may include nervousness, shakiness, nausea, sweating or sleeplessness. During this time, it is best that you stay with family or friends who can help and support you. You can also admit yourself to a residential detox program. If your symptoms are severe, contact your doctor for medicines to help. Follow Up: If alcohol is causing a problem in your life, these and other organizations can help you: Alcoholics Anonymous offers support through a self-help fellowship. There are no dues or fees. See the Yellow Pages and call for time and place of meetings. www.aa.org [employer] offers support to families of alcohol users. 545.908.9812 www.al-anon.org National [place] On Alcoholism And Drug Dependence 263-223-7759 www.ncadd.org There are also inpatient or residential alcohol detox programs. Check the Internet or phonebook Yellow Pages under Drug Abuse & Treatment Centers. Get Prompt Medical Attention if any of the following occur: there) Cirrhosis Of The Liver The liver is located on the right side of your abdomen, just below the rib cage. The liver performs many essential functions including: Filters toxins from the blood Makes bile to aid digestion and absorption of vitamins from the GI tract Makes clotting factors that stop bleeding if you injure yourself Viral infections and toxins can cause permanent injury to the liver, called CIRRHOSIS. The most common cause of cirrhosis in the [place] is Hepatitis C and alcohol abuse. Other causes include Hepatitis B, medication side effects and others. The scarring that results from cirrhosis interferes with normal liver function and can cause many complications, including: Leakage of fluid from the blood vessels. This can cause pooling of fluid in the abdomen (ascites) or in the legs (edema). Inability of blood to form clots normally. This can lead to excess bleeding. Bleeding from blood vessels in the esophagus. This causes vomiting of blood or blood in the stool. Build-up of bile in the blood which causes a yellow color of the eyes and skin (jaundice). Build-up of toxins in the body which affect the brain and cause confusion. Treatment is aimed at taking care of the symptoms and preventing further liver damage. If your liver damage is from alcohol, quitting will slow the progress of the disease and may prevent further complications. If cirrhosis progresses and becomes life-threatening, liver transplant may be considered. If your liver damage is from Hepatitis B or C, treatments may be given to fight the virus. Home Care: Avoid medicines that can worsen liver damage such as acetaminophen (Tylenol). Your doctor will explain if any of the medicines you now take need to be changed. Talk to you doctor before taking mineral and vitamin supplements. Vitamin A, iron and copper can worsen liver damage. Severely limit alcohol use, or stop altogether. If you are alcoholic, seek professional help. Consider joining Alcoholics Anonymous for ongoing support. If you use IV drugs, you are at risk of Hepatitis B and C. Seek help to stop. The viruses that cause this kind of hepatitis are passed by blood or sexual contact with an infected person. It may even be possible to pass Hepatitis C by sharing straws to snort cocaine. Never share needles or other equipment. Follow Up with your doctor or as advised by our staff. Learn more about your disease and the availability of support groups for others with the same condition. Contact one of the following for more information: [employer] www.liverfoundation.org 351-882-6496 [employer] www.hepfi.org [phone] Get Prompt Medical Attention if any of the following occur: Rapid weight gain with increased size of your abdomen or leg swelling Increasing jaundice (yellow color of skin or eyes) Excess bleeding from cuts or injuries Alcohol Withdrawal Alcohol withdrawal symptoms occur if you have been drinking steadily for at least several days, and your body gets used to the effect of alcohol. When you suddenly stop drinking (or, even just cut down your daily intake but continue to drink), you may develop alcohol withdrawal, also called the The usual symptoms last 3-4 days and include nervousness, shakiness, nausea, sweating, sleeplessness. In severe cases hallucinations (seeing things that are not there) and seizures can occur. Home Care: You will need plenty of rest and fluids over the next several days. Eat regular meals. Of course, do not drink any more alcohol. During this time, it is best that you stay with family or friends who can help and support you. You can also admit yourself to a residential detox program. Do not drive until all symptoms are gone and you are feeling better. If you were given sedative medication to reduce your symptoms, do not take it more often than prescribed and never take it with alcohol. Follow Up: Once you have gone through the withdrawal symptoms, you have fought half of the ramsey. To avoid the risk of returning to your previous drinking pattern, it is essential that you get follow-up support and treatment. Alcoholics Anonymous offers support through a self-help fellowship. There are no dues or fees. See the Yellow Pages and call for time and place of meetings. www.aa.org [employer] offers support to families of alcohol users. 175.816.2129 www.al-anon.org National [place] On Alcoholism And Drug Dependence 571-021-0951 www.ncadd.org Residential alcohol detox programs are available. Check the Yellow Pages under Drug Abuse & Treatment Centers. Get Prompt Medical Attention if any of the following occur: Severe shakiness Hallucinations Seizure Fever over 100.5 F (38.0 C) oral Headache, confusion, extreme drowsiness, inability to awaken Increasing upper abdominal pain Repeated vomiting or vomiting blood You have been given the following additional information: Fall, Mechanical Hip Contusion Alcohol Intoxication Cirrhosis Alcohol Withdrawal (Electronically signed by Simon Wynne DO 07/15/2016 17:56)
[2016-07-15 18:19] VITALS: BP 134/78
[2016-07-15 22:29] VITALS: BP 134/77
[2016-07-16 03:22] VITALS: BP 131/82
--- NOTE | 2016-07-16 06:25 | Progress Note ---
Subjective General ote Date: 2016 Admission Date: 07/15/2016 Hospital Day: 2 PCP: Shakeel Advanced Directive: Full code In Patient Acute Care Room: 207 61-year-old female with past medical history that's consistent alcohol dependence, disabled due to osteoarthritic joints, hypertension , prior CVA, hepatitis C, osteoporosis, anemia, bipolar disease. Patient apparently had a fall and experienced left hip pain and left side costal pain. She was brought to the [facility] ED with hypotension, also seem to be hypoxia. The [facility] ED, patient was also found to have alcohol intoxication. Patient was admitted for observation and further evaluations. Subjective Patient ports that she continues to have left hip and costal pain. Patient states that she has little bit better control on her pain. Patient has been taking the oxycodone as planned. Patient is also on Ativan for alcohol withdrawal protocol. Patient is not yet completely ambulatory. He states that she does not have much of an appetite this morning. Requests Stop alcohol use. Discharged home. Physical Exam Vital Signs / I&Os Vital Signs Date Time Temp Pulse Resp B/P Pulse O2 O2 Flow FiO2 Ox Delivery Rate 07/16 0322 98.1 88 18 131/82 91 Room Air 07/15 2229 98.2 84 18 134/77 93 Nasal 1.0 Cannula 07/15 2116 2.0 07/15 1948 1.0 07/15 1819 98.2 86 18 134/78 95 Nasal 1.0 Cannula 07/15 1400 98.1 93 18 141/86 97 Nasal 1.0 Cannula 07/15 1135 87 18 122/77 97 Nasal 1.0 Cannula 07/15 0941 98.1 81 20 129/78 97 Nasal 1.0 Cannula 07/15 0640 Nasal 1.0 Cannula 07/15 0633 98.2 73 21 102/61 96 Nasal 1.0 Cannula I&O 07/15 0800 07/15 1600 07/16 0000 Intake Total 0 90 1181 Output Total 450 1825 900 Balance -450 -1735 281 General Appearance Cooperative, No acute distress HEENT EOMI Neck Supple Cardiovascular Normal S1 and S2 Extremities slight edema Skin No Rashes Psych/Mental Status Mood normal LAB Results Laboratory Tests 07/15 07/16 1025 0540 Chemistry Plasma Sodium Pending Plasma Potassium Pending Plasma Chloride Pending CO2 (Enzymatic) Pending BUN Pending Creatinine Pending Est GFR ( Amer) Pending Est GFR (Non-Af Amer) Pending Glucose Pending Plasma Calcium Pending Phosphorus Pending Plasma Magnesium Pending Total Bilirubin Pending AST Pending ALT Pending Alkaline Phosphatase Pending Troponin (0.00 - 1.5 ng/mL) 0.09 Total Protein Pending Albumin Pending Hematology WBC (4.5 - 11.5 K/uL) 3.3 RBC (4.00 - 5.20 M/uL) 3.48 Hgb (12.0 - 16.0 gm/dL) 12.0 Hct (36.0 - 46.0 %) 35.0 MCV (80 - 100 fL) 100 MCH (26 - 34 pg) 34 RDW (11.6 - 14.8 %) 16.4 Neut % (Auto) (50 - 75 %) 55.7 Lymph % (Auto) (25 - 40 %) 25.7 Sebastian % (Auto) (3 - 14 %) 17.7 Eos % (Auto) (0 - 4 %) 0.5 Baso % (Auto) (0 - 2 %) 0.4 Plt Count, EDTA (150 - 400 K/uL) 149 PUBS MCHC (31 - 37 g/dL) 34 Assessment and Plan Problem List 1. Hypotension Plan Patient found hypertensive on admission. Patient's blood pressure is now normalized. This is been normal now for at least 24 hours. Likely discharged today with recommendations to hold blood pressure medicine until seen by primary care. Recommendations for patient to be under close supervision for alcohol withdrawal. Strong encouragement for patient to be seen by a professional for alcoholism. 2. Hypoxemia Plan Patient seen to be hypoxic on admission. Patient's breathing is now normalized. Patient will go home on home medication. 3. Alcohol intoxication Plan Patient found to be intoxicated on admission. Strong encouragement for patient to be under supervision by professional for alcohol withdrawal. Patient should have options for treatment. 4. Alcohol dependence Plan Patient was placed on alcohol withdrawal protocol. Patient responded nicely. Patient should be seen by professional for alcohol withdrawal protocol. The patient should be Current status: Fair, unstable Anticipated discharge date: Anticipated discharge Anticipated discharge placement: Home with home care Patient care time: Time spent in chart review, patient interview, physical exam, CPOE, and care documentation: 25 minutes Visit to patient today: Complexity of care: Mild Initial patient evaluation: Emergency department consultation DVT prophylaxis: Lovenox GI prophylaxis 5. Rib pain Plan Peter follows with signs of fracture in the left costal region. Suggested patient be seen by primary care, possibly orthopedic. Strong encouragement for patient be seen by primary care. May consider DEXA scan E&M Codes Rounding: Obsv-Comp/High/[id number]
[2016-07-16 07:30] VITALS: BP 119/68
[2016-07-16 10:55] VITALS: BP 140/82
[2016-07-16 14:35] VITALS: BP 152/92
--- NOTE | 2016-07-16 16:55 | DIAGNOSTIC IMAGING REPORT ---
REFERRING PHYSICIAN/PROVIDER: Robert Hanna MD CONSULTING FLYER REPAIRER: Pedro Gilman MD INDICATION: hypoxia Procedure: A two-dimensional transthoracic echocardiogram with color flow and Doppler was performed. The study quality was technically difficult. The patient was in normal sinus rhythm during the exam. Left Ventricle: The left ventricle is normal in size. There is mild concentric left ventricular hypertrophy. Left ventricular systolic function is normal without focal wall motion abnormalities. The ejection fraction is estimated to be 65-70%. The E/A ratio is reversed, suggesting impaired early relaxation of the left ventricle or a reduced preload state. Right Ventricle: The right ventricle is borderline dilated. The right ventricular systolic function is normal. Atria: Both atria are normal in size. Mitral Valve: The mitral valve is normal in structure and function. There is trace mitral regurgitation. Aortic Valve: The aortic valve is trileaflet. The aortic valve opens well. There is no aortic regurgitation. Tricuspid Valve: The tricuspid valve is normal in structure and function. No tricuspid regurgitation. Pulmonary artery pressures cannot be estimated because of the lack of a measurable TR jet velocity. Pulmonic Valve: The pulmonic valve is not well visualized. There is no significant valvular heart disease. Great Vessels: The aortic root is normal size. The ascending aorta is normal in size. The IVC is of normal diameter and collapses greater than 50% with a sniff. This suggests a low right atrial pressure of 3 mm Hg. Pericardium/ Pleura There is no pericardial effusion. IMPRESSION: There is mild concentric left ventricular hypertrophy. Left ventricular systolic function is normal without focal wall motion abnormalities. The ejection fraction is estimated to be 65-70%. The E/A ratio is reversed, suggesting impaired early relaxation of the left ventricle or a reduced preload state. The right ventricle is borderline dilated. The right ventricular systolic function is normal. Pulmonary artery pressures cannot be estimated because of the lack of a measurable TR jet velocity. Both atria are normal in size. There is no significant valvular heart disease. The aortic root is normal size.
[2016-07-16 18:00] VITALS: BP 150/91
[2016-07-16 23:18] VITALS: BP 153/91
[2016-07-17 02:32] VITALS: BP 150/90
[2016-07-17 06:56] VITALS: BP 154/87
--- NOTE | 2016-07-17 07:48 | Discharge Summary ---
Discharge Summary Report Admit Date 07/15/16 Discharge Date 07/17/16 Admission Diagnosis 1. Alcohol intoxication 2. Hypertension 3. Hypoxemia 4. History of hypertension 5. Anemia 6. Hepatitis C 7. Alcohol dependence Discharge Diagnosis 1. Alcohol intoxication 2. Hypertension 3. Hypoxemia 4. Alcohol withdrawal syndrome 5. Anemia 6. Hepatitis C 7. Alcohol dependence 8. Hypokalemia 9. Hypomagnesemia 10. Rib fracture Brief History 61-year-old female with past medical history that's consistent alcohol dependence, disabled due to osteoarthritic joints, hypertension , prior CVA, hepatitis C, osteoporosis, anemia, bipolar disease. Patient apparently had a fall and experienced left hip pain and left side costal pain. She was brought to the [facility] ED with hypotension, also seem to be hypoxia. The [facility] ED, patient was also found to have alcohol intoxication. Patient was admitted for observation and further evaluations. For other history present illness, past medical history, family history, social history, review of systems, and admission physical examination please see the patient's history and physical examination and ER visit note in the patient's medical record. Hospital Course The following problems and their management were noted during the patient's hospitalization: 1. Alcohol intoxication The patient presented with alcohol abuse/intoxication. This rapidly resolved during her hospital stay. It was not problematic. Recommend patient pursue an alcohol abstinence program post discharge. 2. Hypertension The patient presented with history of hypertension. Her blood pressure was low at the time of admission. Her antihypertensive medication regimen was modified to lisinopril 10 mg by mouth daily and atenolol 25 mg by mouth twice a day. She will follow-up with her PCP in 3-5 days for repeat blood pressure check. Low- salt diet. 3. Hypoxemia The patient presented with findings of hypoxemia. She underwent echocardiogram which showed no significant LV systolic dysfunction. There was a suggestion of mild diastolic dysfunction. CT angiogram showed no signs of pulmonary embolism. Her hypoxemia resolved during her hospital stay. O2 sats were 96% on room air at the time of discharge. Etiology of hypoxemia remains on unclear. 4. Alcohol withdrawal syndrome The patient manifested no severe signs of alcohol withdrawal syndrome. She showed no significant agitation or mental status changes on discharge. She was encouraged to follow an alcohol abstinence program post discharge. 5. Anemia The patient had findings of borderline anemia. H&H was 12.1/35.5 on discharge. Outpatient follow-up with PCP. 6. Hepatitis C The patient has history of hepatitis C. She had mild elevation of AST during her hospital stay. Bilirubin was within normal limits. Alkaline phosphatase elevated at 120. No further evaluation was undertaken during the patient's hospitalization. It was recommended to the patient that she follow-up with her PCP for follow-up. 7. Alcohol dependence The patient exhibited no significant signs of alcohol withdrawal during her hospital stay. She was here less than 72 hours however. It was recommended she pursue an alcohol abstinence program post discharge. Outpatient follow-up with PCP. 8. Hypokalemia The patient had findings of mild hypokalemia. She was discharged on potassium supplementation in the form of KCl 20 mEq by mouth daily. It is recommended she undergo repeat potassium determination next week with her PCP. 9. Hypomagnesemia The patient was noted to have findings of mild hypomagnesemia. She was treated with IV followed by by mouth supplementation. She was discharged on mag 64 one by mouth 3 times a day. It is recommended she undergo repeat magnesium determination next week with her PCP. 10. Rib fracture The patient had findings of left posterior 11th rib fracture. This appeared acute. This was treated with Tylenol as needed for pain. Outpatient follow-up with PCP. General Appearance Alert, Oriented X3, Cooperative, No acute distress Lungs Clear to auscultation, Normal air movement Cardiovascular Normal S1, Normal S2 Abdomen Soft, No tenderness, No hepatospenomegaly Neurological Normal tone, Cranial nerves 3-12 NL Psych/Mental Status Mental status NL, Mood NL Lab/Imaging Laboratory Tests 07/17 0530 Chemistry Plasma Sodium (136 - 145 mmol/L) 142 Plasma Potassium (3.5 - 5.1 mmol/L) 3.3 Plasma Chloride (98 - 107 mmol/L) 106 CO2 (Enzymatic) (21 - 32 mmol/L) 27 BUN (7 - 18 mg/dL) 2 Creatinine (0.6 - 1.3 mg/dL) 0.7 Est GFR ( Amer) (mL/min) >60 Est GFR (Non-Af Amer) (mL/min) >60 Glucose (70 - 110 mg/dL) 100 Plasma Calcium (8.5 - 10.1 mg/dL) 8.1 Plasma Magnesium (1.8 - 2.4 mg/dL) 1.7 Total Bilirubin (0.0 - 1.0 mg/dL) 1.0 AST (15 - 37 U/L) 52 ALT (12 - 78 U/L) 37 Alkaline Phosphatase (46 - 116 U/L) 120 Total Protein (6.4 - 8.2 g/dL) 7.2 Albumin (3.3 - 5.0 g/dL) 2.9 Hematology WBC (4.5 - 11.5 K/uL) 2.8 RBC (4.00 - 5.20 M/uL) 3.56 Hgb (12.0 - 16.0 gm/dL) 12.1 Hct (36.0 - 46.0 %) 35.5 MCV (80 - 100 fL) 100 MCH (26 - 34 pg) 34 RDW (11.6 - 14.8 %) 15.9 Neut % (Auto) (50 - 75 %) 56.2 Lymph % (Auto) (25 - 40 %) 25.8 Emmet % (Auto) (3 - 14 %) 16.3 Eos % (Auto) (0 - 4 %) 1.3 Baso % (Auto) (0 - 2 %) 0.4 Plt Count, EDTA (150 - 400 K/uL) 143 PUBS MCHC (31 - 37 g/dL) 34 Discharge Instructions/Meds For other recommendations regarding discharge diet, activity, followup, and discharge medications please see the patient's discharge instructions. Discharge condition: Fair, improved Greater than 30 min. was spent in the patient's discharge preparation including discharge interview and physical examination, progress note, discharge instructions, and discharge summary The patient was interviewed and examined on the day of discharge. E&M Codes Discharge: Inpt >30 min spent/[id number]
[2016-07-17 11:14] VITALS: BP 154/95
[2016-07-17] MEDS ORDERED: MAG6464 MG PO (13:47)
[2016-07-17] MEDS ORDERED: VOL-TAB RX PO (13:47)
[2016-07-17] MEDS ORDERED: KLOR-CON M2020 MEQ PO (13:47)
--- NOTE | 2016-07-17 13:53 | Provider's Discharge Care Plan ---
Problem, Goal, Plan Problem List 1. Hypotension Goals: Improve disease control, Prevent disease progress Instructions: Follow up as directed, Take meds as directed 2. Alcohol dependence Goals: Improve disease control, Improve function, Improved health/wellness, Increase independence, Prevent disease progress Instructions: Follow up as directed, Take meds as directed, No alcohol consumption. Recommend outpatient treatment program with her PCP 3. Hypomagnesemia Goals: Improve disease control, Improve function, Improve nutrition status, Prevent disease progress Instructions: Follow up as directed, Take meds as directed, Have a magnesium level checked at your physician's office at your next appointment 4. Hypokalemia Goals: Improve disease control, Improved health/wellness, Improve nutrition status, Prevent disease progress Instructions: Follow up as directed, Take meds as directed, Have your potassium level checked at your physician's office at your next visit. 5. Rib fracture Goals: Improve disease control, Prevent disease progress Instructions: Follow up as directed, Take meds as directed, Avoid alcohol consumption. Tylenol 650 mg every 4 hours as needed for pain.
== END 2016-07-17 14:45 | disposition home or self-care (01) | DRG 918 ==
LOC: ED SRH 00:10 → ACUTE2 SRH 05:20 → TRANS SRH 05:20 → ACUTE2 SRH 07:46 → ACUTE3 SRH 17:37 → ACUTE2 SRH 17:37
PROVIDERS: ADMIT Neuromusculoskeletal Medicine, Sports Medicine
DX: T44.7X1A Poisoning by beta-adrenoreceptor antagonists, accidental (unintentional), initial encounter (principal); T51.0X1A Toxic effect of ethanol, accidental (unintentional), initial encounter; I95.2 Hypotension due to drugs; S22.32XA Fracture of one rib, left side, initial encounter for closed fracture; S70.02XA Contusion of left hip, initial encounter; W18.30XA Fall on same level, unspecified, initial encounter; R09.02 Hypoxemia; E87.6 Hypokalemia; E83.42 Hypomagnesemia; I85.00 Esophageal varices without bleeding; F10.220 Alcohol dependence with intoxication, uncomplicated; Y90.7 Blood alcohol level of 200-239 mg/100 ml; K70.30 Alcoholic cirrhosis of liver without ascites; Y92.009 Unspecified place in unspecified non-institutional (private) residence as the place of occurrence of the external cause; Y99.8 Other external cause status; B18.2 Chronic viral hepatitis C; F17.200 Nicotine dependence, unspecified, uncomplicated

== ENCOUNTER 2016-07-24 22:21 | Emergency (ER) | payer MEDICARE, OTHER ==
[~2016-07-24 22:21] MED LIST: ASPIRIN 81 LOW81 MG PO; ATENOLOL25 MG PO; INDERAL EQUIVAL20 MG PO; KLOR-CON M2020 MEQ PO; LAMICTAL100 MG PO; LIDODERM5 % TOP; LISINOPRIL10 MG PO; MAG6464 MG PO; TRAZODONE HCL50 MG PO; VESICARE10 MG; VOL-TAB RX PO
--- NOTE | 2016-07-25 09:18 | ED CLINICAL REPORT ---
Clinical Report - Physicians/Mid Levels [facility] [address] [place] [address] 07/24/2016 22:23 Patient: MAHAMED CONNELL Time Seen: 00:25 Jul 25 2016. Arrived- By ambulance. Historian- patient and EMS personnel. ( Pt drinking all day, caregiver felt unable to leave pt at home alone for safety reasons. pt admits to drinking 1 pint of liquor and 12 beers). CPT: ER phys charges level 4 (#375102). HISTORY OF PRESENT ILLNESS Chief Complaint: INTOXICATED. Symptoms started today. Substances abused: Alcohol. Last drink just prior to arrival. The patient has been confused and agitated. The symptoms are described as moderate. No injuries noted. Similar symptoms previously: Several times. Recent medical care: Not recently seen/assessed. REVIEW OF SYSTEMS No headache, dizziness, weakness, chest pain or palpitations. No black stools, bloody stools, sore throat, cough or difficulty breathing. No difficulty with urination or skin abscess. The patient has had mild difficulty walking (intoxicated.). All systems otherwise negative, except as recorded above. PAST HISTORY Rib Fracture. Hypotension. Hypoxia. Alcoholic Liver Disease. Abnormal Liver Function Test. Alcohol Intoxication. Contusion. Fall. Sprain. Anxiety Reaction. Mental Illness. Anemia. Hep C. Changed Mental Status. Immunizations. LNMP - Last Normal Menstrual Period. Spinal Fracture. Chronic Back Pain. UTI - Urinary Tract Infection. Fibromyalgia. Hepatitis. Bipolar Disorder. Hypertension. Narcotic Withdrawal. --22:33 Yvette Weston RJai. ADDITIONAL SURGERIES: Cholecystectomy. Colonoscopy. Endoscopy. Hysterectomy. Shoulder Surgery. Medications: ASA Oral 81 mg. Atenolol Oral (Tablet 25 mg) 3 tablets, 2x a day. LamoTRIgine Oral 1 200mg tab am 2 tabs HS. Lidocaine patch 12h on 12h off. Lisinopril Oral 40 mg, daily. Propranolol HCl Oral 20 mg, 2x a day. Solifenacin Succinate Oral 10mg, bid. TraZODone HCl Oral. Allergies: Ibuprofen. (has inflammation of liver) Paxil. PROzac. Tylenol. Ultram. (liver toxicity caused coma). SOCIAL HISTORY Heavy tobacco smoker (cigarette)- 1 pack per day. Heavy alcohol use. No drug use. FAMILY HISTORY Negative. ADDITIONAL NOTES The nursing notes have been reviewed. PHYSICAL EXAM Vital Signs: 07/24/2016 22:30 BP: 125/78. HR: 82. RR: 18. O2 saturation: 94%. Temp: 97.6 F. Pain level now: 0/10. Appearance: Alert. The patient's speech is slurred and odor of alcohol is present. Head: Head atraumatic. Eyes: Pupils equal, round and reactive to light. ENT: Normal ENT inspection. Moist mucous membranes. Neck: Normal inspection. CVS: Normal heart rate and rhythm. Heart sounds normal. Pulses normal. Respiratory: No respiratory distress. Breath sounds normal. Abdomen: Soft and nontender. Back: Normal inspection. Skin: Skin warm. Normal skin color. No rash. Extremities: No lower extremity edema. Neuro: Alert. Alertness is decreased. Mood/affect normal. Dysarthria. Cranial nerves normal (as tested). Finger-nose test abnormal. No motor deficit. No sensory deficit. Reflexes normal. Abnormal gait. LABS, X-RAYS, AND EKG Laboratory Tests: CBC w Diff: (SHAKIR: 07/25/2016 01:00) ( MsgRcvd 07/25/2016 01:08) Final results Test Result Flag Units (Reference) WHITE BLOOD COUNT 4.1 L K/uL (4.5-11.5) RED BLOOD COUNT 3.81 L M/uL (4.00-5.20) HEMOGLOBIN 12.9 gm/dL (12.0-16.0) HEMATOCRIT 37.9 % (36.0-46.0) MEAN CELL VOLUME 100 fL (80-100) MEAN CORPUSCULAR HGB 34 pg (26-34) MEAN CORPUSCULAR HGB CONC 34 g/dL (31-37) RED CELL DISTRIBUTION WIDTH 16.1 H % (11.6-14.8) PLATELET COUNT 313 K/uL (150-400) NEUTROPHIL % 31.4 L % (50-75) LYMPH % 51.9 H % (25-40) MONO % 14.8 H % (3-14) EOSINOPHIL % 0.9 % (0-4) BASOPHIL % 1.0 % (0-2) Ethyl Alcohol: (SHAKIR: 07/25/2016 06:44) ( MsgRcvd 07/25/2016 07:10) Final results Test Result Flag Units (Reference) ETHYL ALCOHOL 220 H mg/dL (3-10) CMP: (SHAKIR: 07/25/2016 01:00) ( MsgRcvd 07/25/2016 01:31) Final results Test Result Flag Units (Reference) GLUCOSE 97 mg/dL (70-110) BUN 7 mg/dL (7-18) CREATININE 0.9 mg/dL (0.6-1.3) Estimated GFR >60 mL/min Estimated GFR- >60 mL/min Note: Persistent reduction over 3 months in eGFR<60 mL/min/1.73 m2 defines CKD. Patients with eGFR values>=60 mL/min/1.73 m2 may also have CKD if evidence ofpersistent proteinuria. Additional information may be foundat www.kidney.org. SODIUM 145 mmol/L (136-145) POTASSIUM 3.8 mmol/L (3.5-5.1) CHLORIDE 109 H mmol/L (98-107) CARBON DIOXIDE 27 mmol/L (21-32) CALCIUM 8.2 L mg/dL (8.5-10.1) TOTAL PROTEIN 8.1 g/dL (6.4-8.2) ALBUMIN 3.4 g/dL (3.3-5.0) BILIRUBIN, TOTAL 0.5 mg/dL (0.0-1.0) ALKALINE PHOSPHATASE 153 H U/L (46-116) AST (SGOT) 91 H U/L (15-37) ALT (SGPT) 51 U/L (12-78) LIPASE 210 U/L (73-393) ETHYL ALCOHOL 337 H mg/dL (3-10) . PROGRESS AND PROCEDURES Course of Care: 09:16 07/25/16. ativan 1 mg po Caregiver coming to picker/puller patient. She is already hooked up with [facility] and they estimate a 4 day wait. Patient/family counseled. Disposition: Discharged. Condition: stable and improved. CLINICAL IMPRESSION Uncomplicated alcohol intoxication with alcohol dependence. INSTRUCTIONS (Get to [facility] as scheduled.). Warnings: Further evaluation is necessary. SEDATIVE MEDICATION: You were given sedative medication during your visit. Do not drive or operate dangerous machinery. Your Current Medications: CONTINUE TAKING THE FOLLOWING MEDICATIONS: ASA Oral : 81 mg. Atenolol Oral : Tablet 25 mg, 3 tablets 2x a day. LamoTRIgine Oral : 1 200mg tab am 2 tabs HS. Lidocaine patch 12h on 12h off*. Lisinopril Oral : 40 mg daily. Propranolol HCl Oral : 20 mg 2x a day. Solifenacin Succinate Oral : 10mg bid. TraZODone HCl Oral. Follow-up: Follow up with your doctor in one week. Call for an appointment. Understanding of the discharge instructions verbalized by patient. (Electronically signed by Bernardo Santana MD 07/29/2016 19:25)
--- NOTE | 2016-07-25 09:18 | ED ORDER SUMMARY ---
..... Patient: MAHAMED CONNELL OrderSheet [facility] VisitID: [id number] [address] [place] [address] 61y, F Registration Date/Time: 07/24/2016 ORDER SHEET Weight: 90.7 kg (stated) Allergies: Ibuprofen, Paxil, PROzac, Tylenol, Ultram GENERAL ORDERS: CBC w Diff Urgent (00:28 07/25/2016 Kailyn HOLCOMB) (Ack 0:33 CHagerty ER Curatorial Assistant) (1:02 TBowen R.N.) CMP Urgent (00:07/25/2016 Kailyn HOLCOMB) (Ack 0:33 CHagerty ER Curatorial Assistant) (1:02 TBowen R.N.) Lipase Urgent (00:07/25/2016 Kailyn HOLCOMB) (Ack 0:33 CHagerty ER Curatorial Assistant) (1:02 TBowen R.N.) Ethyl Alcohol Urgent (00:07/25/2016 Kailyn HOLCOMB) (Ack 0:33 CHagerty ER Curatorial Assistant) (1:02 TBowen R.N.) Ethyl Alcohol Urgent (06:35 07/25/2016 TBowen R.N. per protocol) (Ack 6:37 CHagerty ER Curatorial Assistant) (6:50 CBradburn R.N.) MEDICATION ORDERS: Zofran ODT PO 4 mg (NOW) (09:06 07/25/2016 LSullivan R.N. verbal order read back to Kailyn HOLCOMB) (9:07 LSullivan R.N.) Ativan PO 1 mg (NOW) (09:15 07/25/2016 Kailyn HOLCOMB) (9:25 LWhalen R.N.) IV FLUIDS: ORDER SHEET NOTES: [Electronically signed by Esther Salazar R.N. (10:51 07/28/2016)] [Electronically signed by Bernardo Santana MD (19:25 07/29/2016)] [Electronically locked/signed by Esther Salazar R.N. (10:51 07/28/2016)]
--- NOTE | 2016-07-25 09:18 | ED NURSING NOTES ---
Clinical Report - Nurses [facility] [address] [place] [address] 07/24/2016 22:23 Patient: MAHAMED CONNELL TRIAGE Triage time 22:25. Acuity: LEVEL 3. Chief Complaint: SUBSTANCE ABUSE (ETOH). --22:36 Yvette Weston R.N. 22:30 07/24/16. BP: 125/78 taken on the left arm, while lying. HR: 82. RR: 18. O2 saturation: 94% on room air. Temp: 97.6 F (oral). Pain level now: 0/10. --22:36 Yvette Weston R.N. Weight: 90.7 kg stated. Height/Length: 67 inches Per Patient. BMI: 31.3. --22:36 Yvette Weston R.N. Medications ASA Oral 81 mg. Atenolol Oral (Tablet 25 mg) 3 tablets, 2x a day. LamoTRIgine Oral 1 200mg tab am 2 tabs HS. Lidocaine patch 12h on 12h off. Lisinopril Oral 40 mg, daily. Propranolol HCl Oral 20 mg, 2x a day. Solifenacin Succinate Oral 10mg, bid. TraZODone HCl Oral. --22:32 Yvette Weston R.N. Allergies Ibuprofen. (has inflammation of liver) Paxil. PROzac. Tylenol. Ultram. (liver toxicity caused coma) --22:32 Yvette Weston R.N. History Arrived by EMS. Historian: patient. Unaccompanied. Primary physician (unknown). ( Pt drinking all day, caregiver felt unable to leave pt at home alone for safety reasons. pt admits to drinking 1 pint of liquor and 12 beers). SOCIAL HX: Light tobacco smoker (cigarette)- less than 1/2 a pack per day. Heavy alcohol use; consumes 12-pack of beer a day and a large amount of liquor drinks. Last drink was just prior to arrival. Patient is a longstanding alcoholic. Patient smells of ETOH in the emergency department. The patient has not traveled outside the [place] ABUSE ASSESSMENT: No report of abuse. SELF HARM ASSESSMENT: A self harm assessment was performed. The patient answered "no" to the question "Have you recently felt down, depressed, or hopeless?", "Have you noticed less interest or pleasure in doing things?", "Do you have thoughts of harming or killing yourself?", "Are you here because you tried to hurt yourself?", "Have you ever tried to hurt yourself before today?", "Have you recently had thoughts about harming or killing others?" and "Do you have any dangerous items in your possession?". NUTRITIONAL RISK ASSESSMENT: The nutritional risk assessment revealed no deficiencies. FUNCTIONAL ASSESSMENT: Functional assessment: no impairments noted. LEARNING NEEDS ASSESSMENT: The learning needs assessment revealed no barriers. FALL RISK ASSESSMENT: Fall risk assessment completed. Risk factors identified include patient history of fall. SKIN INTEGRITY ASSESSMENT: Skin integrity risk assessment completed. No skin integrity risk identified. --22:36 Yvette Weston R.N. PROBLEMS: Rib Fracture. Hypotension. Hypoxia. Alcoholic Liver Disease. Abnormal Liver Function Test. Alcohol Intoxication. Contusion. Fall. Sprain. Anxiety Reaction. Mental Illness. Anemia. Hep C. Changed Mental Status. Immunizations. LNMP - Last Normal Menstrual Period. Spinal Fracture. Chronic Back Pain. UTI - Urinary Tract Infection. Fibromyalgia. Hepatitis. Bipolar Disorder. Hypertension. Narcotic Withdrawal. --22:33 Yvette Weston R.N. ADDITIONAL SURGERIES: Cholecystectomy. Colonoscopy. Endoscopy. Hysterectomy. Shoulder Surgery. --22:33 Yvette Weston R.N. Interventions ID band on patient. --22:36 Yvette Weston R.N. PHYSICAL ASSESSMENT To room via stretcher. GENERAL / NEURO / PSYCH: Alert. Oriented X 4. Appears in no acute distress. HEENT: Pupils equal, round and reactive to light. No facial asymmetry noted. Mucous membranes are pink. RESPIRATORY: Respirations not labored. Chest nontender. Breath sounds within normal limits. CVS: Normal sinus rhythm noted. Capillary refill less than 2 seconds. Pulses within normal limits. GI / : Abdomen soft and nontender and normal bowel sounds. SKIN: Skin intact. Skin is warm and dry. Normal skin turgor. --22:37 Yvette Weston R.N. NURSING PROGRESS NOTES Two patient identifiers checked. Call light placed in reach. Side rails up x 2. Bed placed in lowest position. Brakes of bed on. --22:37 Yvette Weston R.N. Patient ready for evaluation- chart flagged. --22:37 Yvette Weston R.N. Patient ID band checked for patient name and birthdate: patient confirmed. Blood samples drawn from the right hand with Vacutainer and 22g butterfly by nurse ; labeled in presence of the patient and sent to lab: [facility]. Blood not drawn from IV site. --01:03 Raul Almendarez. The patient is sleeping. ( pt sleeping, VSS, will continue to monitor.). RESPIRATORY: No respiratory distress. Breath sounds normal. SKIN: Skin is warm and dry. Skin color within normal limits. --03:17 Yvette Weston R.N. 03:16 07/25/16. BP: 126/80 taken on the right arm, while lying. HR: 74 (regular and normal rate). RR: 18. O2 saturation: 92% on room air. Pain level now: 0/10. --03:17 Yvette Weston R.N. Overall patient status is improved- she states feels better. ( pt resting, A&Ox4, will continue to monitor,). RESPIRATORY: No respiratory distress. Breath sounds normal. SKIN: Skin is warm and dry. Skin color within normal limits. --06:18 Yvette Weston R.N. 06:45 07/25/16. BP: 138/87. HR: 83 (regular and normal rate). RR: 18 (regular and unlabored). O2 saturation: 96% on room air. Temp: deferred. Pain level now: 210. --06:53 Yvette Weston R.N. Patient ID band checked for patient name: patient confirmed. Blood samples drawn from the right forearm with 23g butterfly by nurse per protocol ; labeled in presence of the patient and sent to lab: [facility]. Reassessment after fluids administered. She reports no complaints and she is calm. ( pt given apple juice, and warm blankets, A&Ox4, labs drawn per MD order). --06:53 Yvette Weston R.N. Care transferred and report given (Esther RN). --07:19 Yvette Weston R.N. ( Walked into room to check on patient and patient was pushing like having a stool. Asked patient why she isn't using the commode she states it was too late. Assisted patient to the commode to finish her stool.). --08:10 Esther Salazar R.N. 08:57 07/25/2016 Zofran ODT (Ondansetron) PO 4 mg given. Confirmed 5 rights. --09:07 Barbie Goodwin R.N. 09:25 07/25/2016 Ativan (LORazepam) PO Tablets 1 mg given. Allergies verified, confirmed 5 rights and sedative warning given to the patient. --09:25 Esther Salazar R.N. DISPOSITION / DISCHARGE Departure time: 11:00 Jul 25 2016. Condition at departure: improved. No learning barriers present. Discharge instructions provided and reviewed with the patient. Reviewed warnings. Reviewed medication(s). Treatments reviewed. Reviewed referrals. Patient verbalized understanding. Written instructions provided in [place] [employer]. The patient was discharged home and accompanied by diagnostic technician. She left the Emergency Department ambulatory and via private vehicle. Fire And Explosion Investigator driving (caregiver). --11:10 Esther Salazar R.N. 11:08 07/25/16. BP: 135/83. HR: 103. RR: 18. O2 saturation: 96%. Temp: 98.4 F. Pain level now 06/16. --11:10 Esther Salazar R.N. Locked/Released at 07/28/2016 10:51 by Esther Salazar R.N.
--- NOTE | 2016-07-25 09:18 | ED ORDER SUMMARY ---
..... Patient: MAHAMED CONNELL OrderSheet [facility] VisitID: [id number] [address] [place] [address] 61y, F Registration Date/Time: 07/24/2016 ORDER SHEET Weight: 90.7 kg (stated) Allergies: Ibuprofen, Paxil, PROzac, Tylenol, Ultram GENERAL ORDERS: CBC w Diff Urgent (00:28 07/25/2016 Kailyn HOLCOMB) (Ack 0:33 CHagerty ER Ground Operations Supervisor) (1:02 TBowen R.N.) CMP Urgent (00:07/25/2016 Kailyn HOLCOMB) (Ack 0:33 CHagerty ER Ground Operations Supervisor) (1:02 TBowen R.N.) Lipase Urgent (00:07/25/2016 Kailyn HOLCOMB) (Ack 0:33 CHagerty ER Ground Operations Supervisor) (1:02 TBowen R.N.) Ethyl Alcohol Urgent (00:07/25/2016 Kailyn HOLCOMB) (Ack 0:33 CHagerty ER Ground Operations Supervisor) (1:02 TBowen R.N.) Ethyl Alcohol Urgent (06:35 07/25/2016 TBowen R.N. per protocol) (Ack 6:37 CHagerty ER Ground Operations Supervisor) (6:50 CBradburn R.N.) MEDICATION ORDERS: Zofran ODT PO 4 mg (NOW) (09:06 07/25/2016 LSullivan R.N. verbal order read back to Kailyn HOLCOMB) (9:07 LSullivan R.N.) Ativan PO 1 mg (NOW) (09:15 07/25/2016 Kailyn HOLCOMB) (9:25 LWhalen R.N.) IV FLUIDS: ORDER SHEET NOTES: [Electronically signed by Esther Salazar R.N. (10:51 07/28/2016)] [Electronically signed by Bernardo Santana MD (19:25 07/29/2016)] [Electronically locked/signed by Esther Salazar R.N. (10:51 07/28/2016)]
--- NOTE | 2016-07-25 09:18 | ED CLINICAL REPORT ---
Clinical Report - Physicians/Mid Levels [facility] [address] [place] [address] 07/24/2016 22:23 Patient: MAHAMED CONNELL Time Seen: 00:25 Jul 25 2016. Arrived- By ambulance. Historian- patient and EMS personnel. ( Pt drinking all day, caregiver felt unable to leave pt at home alone for safety reasons. pt admits to drinking 1 pint of liquor and 12 beers). CPT: ER phys charges level 4 (#[id number]). HISTORY OF PRESENT ILLNESS Chief Complaint: INTOXICATED. Symptoms started today. Substances abused: Alcohol. Last drink just prior to arrival. The patient has been confused and agitated. The symptoms are described as moderate. No injuries noted. Similar symptoms previously: Several times. Recent medical care: Not recently seen/assessed. REVIEW OF SYSTEMS No headache, dizziness, weakness, chest pain or palpitations. No black stools, bloody stools, sore throat, cough or difficulty breathing. No difficulty with urination or skin abscess. The patient has had mild difficulty walking (intoxicated.). All systems otherwise negative, except as recorded above. PAST HISTORY Rib Fracture. Hypotension. Hypoxia. Alcoholic Liver Disease. Abnormal Liver Function Test. Alcohol Intoxication. Contusion. Fall. Sprain. Anxiety Reaction. Mental Illness. Anemia. Hep C. Changed Mental Status. Immunizations. LNMP - Last Normal Menstrual Period. Spinal Fracture. Chronic Back Pain. UTI - Urinary Tract Infection. Fibromyalgia. Hepatitis. Bipolar Disorder. Hypertension. Narcotic Withdrawal. --22:33 Yvette Weston RJai. ADDITIONAL SURGERIES: Cholecystectomy. Colonoscopy. Endoscopy. Hysterectomy. Shoulder Surgery. Medications: ASA Oral 81 mg. Atenolol Oral (Tablet 25 mg) 3 tablets, 2x a day. LamoTRIgine Oral 1 200mg tab am 2 tabs HS. Lidocaine patch 12h on 12h off. Lisinopril Oral 40 mg, daily. Propranolol HCl Oral 20 mg, 2x a day. Solifenacin Succinate Oral 10mg, bid. TraZODone HCl Oral. Allergies: Ibuprofen. (has inflammation of liver) Paxil. PROzac. Tylenol. Ultram. (liver toxicity caused coma). SOCIAL HISTORY Heavy tobacco smoker (cigarette)- 1 pack per day. Heavy alcohol use. No drug use. FAMILY HISTORY Negative. ADDITIONAL NOTES The nursing notes have been reviewed. PHYSICAL EXAM Vital Signs: 07/24/2016 22:30 BP: 125/78. HR: 82. RR: 18. O2 saturation: 94%. Temp: 97.6 F. Pain level now: 0/10. Appearance: Alert. The patient's speech is slurred and odor of alcohol is present. Head: Head atraumatic. Eyes: Pupils equal, round and reactive to light. ENT: Normal ENT inspection. Moist mucous membranes. Neck: Normal inspection. CVS: Normal heart rate and rhythm. Heart sounds normal. Pulses normal. Respiratory: No respiratory distress. Breath sounds normal. Abdomen: Soft and nontender. Back: Normal inspection. Skin: Skin warm. Normal skin color. No rash. Extremities: No lower extremity edema. Neuro: Alert. Alertness is decreased. Mood/affect normal. Dysarthria. Cranial nerves normal (as tested). Finger-nose test abnormal. No motor deficit. No sensory deficit. Reflexes normal. Abnormal gait. LABS, X-RAYS, AND EKG Laboratory Tests: CBC w Diff: (SHAKIR: 07/25/2016 01:00) ( MsgRcvd 07/25/2016 01:08) Final results Test Result Flag Units (Reference) WHITE BLOOD COUNT 4.1 L K/uL (4.5-11.5) RED BLOOD COUNT 3.81 L M/uL (4.00-5.20) HEMOGLOBIN 12.9 gm/dL (12.0-16.0) HEMATOCRIT 37.9 % (36.0-46.0) MEAN CELL VOLUME 100 fL (80-100) MEAN CORPUSCULAR HGB 34 pg (26-34) MEAN CORPUSCULAR HGB CONC 34 g/dL (31-37) RED CELL DISTRIBUTION WIDTH 16.1 H % (11.6-14.8) PLATELET COUNT 313 K/uL (150-400) NEUTROPHIL % 31.4 L % (50-75) LYMPH % 51.9 H % (25-40) MONO % 14.8 H % (3-14) EOSINOPHIL % 0.9 % (0-4) BASOPHIL % 1.0 % (0-2) Ethyl Alcohol: (SHAKIR: 07/25/2016 06:44) ( MsgRcvd 07/25/2016 07:10) Final results Test Result Flag Units (Reference) ETHYL ALCOHOL 220 H mg/dL (3-10) CMP: (SHAKIR: 07/25/2016 01:00) ( MsgRcvd 07/25/2016 01:31) Final results Test Result Flag Units (Reference) GLUCOSE 97 mg/dL (70-110) BUN 7 mg/dL (7-18) CREATININE 0.9 mg/dL (0.6-1.3) Estimated GFR >60 mL/min Estimated GFR- >60 mL/min Note: Persistent reduction over 3 months in eGFR<60 mL/min/1.73 m2 defines CKD. Patients with eGFR values>=60 mL/min/1.73 m2 may also have CKD if evidence ofpersistent proteinuria. Additional information may be foundat www.kidney.org. SODIUM 145 mmol/L (136-145) POTASSIUM 3.8 mmol/L (3.5-5.1) CHLORIDE 109 H mmol/L (98-107) CARBON DIOXIDE 27 mmol/L (21-32) CALCIUM 8.2 L mg/dL (8.5-10.1) TOTAL PROTEIN 8.1 g/dL (6.4-8.2) ALBUMIN 3.4 g/dL (3.3-5.0) BILIRUBIN, TOTAL 0.5 mg/dL (0.0-1.0) ALKALINE PHOSPHATASE 153 H U/L (46-116) AST (SGOT) 91 H U/L (15-37) ALT (SGPT) 51 U/L (12-78) LIPASE 210 U/L (73-393) ETHYL ALCOHOL 337 H mg/dL (3-10) . PROGRESS AND PROCEDURES Course of Care: 09:16 07/25/16. ativan 1 mg po Caregiver coming to peanut picker patient. She is already hooked up with [place] [facility] and they estimate a 4 day wait. Patient/family counseled. Disposition: Discharged. Condition: stable and improved. CLINICAL IMPRESSION Uncomplicated alcohol intoxication with alcohol dependence. INSTRUCTIONS (Get to [place] detox as scheduled.). Warnings: Further evaluation is necessary. SEDATIVE MEDICATION: You were given sedative medication during your visit. Do not drive or operate dangerous machinery. Your Current Medications: CONTINUE TAKING THE FOLLOWING MEDICATIONS: ASA Oral : 81 mg. Atenolol Oral : Tablet 25 mg, 3 tablets 2x a day. LamoTRIgine Oral : 1 200mg tab am 2 tabs HS. Lidocaine patch 12h on 12h off*. Lisinopril Oral : 40 mg daily. Propranolol HCl Oral : 20 mg 2x a day. Solifenacin Succinate Oral : 10mg bid. TraZODone HCl Oral. Follow-up: Follow up with your doctor in one week. Call for an appointment. Understanding of the discharge instructions verbalized by patient. (Electronically signed by Bernardo Santana MD 07/29/2016 19:25)
--- NOTE | 2016-07-29 19:26 | ED MED RECONCILIATION SUMMARY ---
Patient: MAHAMED CONNELL Medication Reconciliation Report [facility] VisitID: [id number] [address] [place] [address] 61y, F Registration Date/Time: 07/24/2016 Weight: 90.7 kg Height/Length: 67 in. BMI: 31.3 ALLERGIES: Ibuprofen, Paxil, PROzac, Tylenol, Ultram The patient's Home Medications are listed below: CONTINUE TAKING THE FOLLOWING MEDICATIONS: ASA Oral 81 mg Atenolol Oral (25 mg) 3 tablets, 2x a day LamoTRIgine Oral 1 200mg tab am 2 tabs HS Lidocaine patch 12h on 12h off Lisinopril Oral 40 mg, daily Propranolol HCl Oral 20 mg, 2x a day Solifenacin Succinate Oral 10mg, bid TraZODone HCl Oral The source(s) of the original Home Medication information: Not obtained. The following Medications were given to the patient in the Emergency Department: Zofran ODT [PO] PO 4 mg, administered: 07/25/2016 8:57:00 AM Ativan [PO] PO 1 mg, administered: 07/25/2016 9:25:00 AM The following Medications were prescribed to the patient: None.
--- NOTE | 2016-07-29 19:26 | ED DISCHARGE INSTRUCTIONS ---
Patient: MAHAMED CONNELL General Instructions [facility] VisitID: [id number] [place] [address] 61y, F Registration Date/Time: 07/24/2016 Uncomplicated alcohol intoxication with alcohol dependence. INSTRUCTIONS (Get to [place] detox as scheduled.). Warnings: Further evaluation is necessary. SEDATIVE MEDICATION: You were given sedative medication during your visit. Do not drive or operate dangerous machinery. Your Current Medications: CONTINUE TAKING THE FOLLOWING MEDICATIONS: ASA Oral : 81 mg. Atenolol Oral : Tablet 25 mg, 3 tablets 2x a day. LamoTRIgine Oral : 1 200mg tab am 2 tabs HS. Lidocaine patch 12h on 12h off*. Lisinopril Oral : 40 mg daily. Propranolol HCl Oral : 20 mg 2x a day. Solifenacin Succinate Oral : 10mg bid. TraZODone HCl Oral. Follow-up: Follow up with your doctor in one week. Call for an appointment. Understanding of the discharge instructions verbalized by patient. ADDITIONAL INFORMATION Alcohol Intoxication Alcohol intoxication occurs when you drink alcohol faster than your liver can remove it from your system. Alcohol intoxication affects your judgment and coordination. Very high blood alcohol levels can cause coma, very slow breathing and even . If you drink alcohol every day, this may gradually cause permanent damage to your liver, brain, heart, pancreas and other organs. Alcohol use during may cause permanent damage to the growing baby. Home Care: Do not drink any more alcohol. DO NOT DRIVE until all effects of the alcohol have worn off. Get lots of rest over the next few days. Drink plenty of water and other non-alcoholic liquids. Try to eat regular meals. If you have been drinking heavily on a daily basis, you may go through alcohol withdrawl. This is also called the shakes or DTs. The usual symptoms last 3 to 4 days and may include nervousness, shakiness, nausea, sweating or sleeplessness. During this time, it is best that you stay with family or friends who can help and support you. You can also admit yourself to a residential detox program. If your symptoms are severe, contact your doctor for medicines to help. Follow Up: If alcohol is causing a problem in your life, these and other organizations can help you: Alcoholics Anonymous offers support through a self-help fellowship. There are no dues or fees. See the Yellow Pages and call for time and place of meetings. www.aa.org [employer] offers support to families of alcohol users. 689.358.6885 www.al-anon.org National [place] On Alcoholism And Drug Dependence 146-563-9550 www.ncadd.org There are also inpatient or residential alcohol detox programs. Check the Internet or phonebook Yellow Pages under Drug Abuse & Treatment Centers. Get Prompt Medical Attention if any of the following occur: there) You have been given the following additional information: Alcohol Intoxication (Electronically signed by Bernardo Santana MD 07/29/2016 19:25)
--- NOTE | 2016-07-29 19:26 | ED DISCHARGE INSTRUCTIONS ---
Patient: MAHAMED CONNELL General Instructions [facility] VisitID: [id number] [place] [address] 61y, F Registration Date/Time: 07/24/2016 Uncomplicated alcohol intoxication with alcohol dependence. INSTRUCTIONS (Get to [place] detox as scheduled.). Warnings: Further evaluation is necessary. SEDATIVE MEDICATION: You were given sedative medication during your visit. Do not drive or operate dangerous machinery. Your Current Medications: CONTINUE TAKING THE FOLLOWING MEDICATIONS: ASA Oral : 81 mg. Atenolol Oral : Tablet 25 mg, 3 tablets 2x a day. LamoTRIgine Oral : 1 200mg tab am 2 tabs HS. Lidocaine patch 12h on 12h off*. Lisinopril Oral : 40 mg daily. Propranolol HCl Oral : 20 mg 2x a day. Solifenacin Succinate Oral : 10mg bid. TraZODone HCl Oral. Follow-up: Follow up with your doctor in one week. Call for an appointment. Understanding of the discharge instructions verbalized by patient. ADDITIONAL INFORMATION Alcohol Intoxication Alcohol intoxication occurs when you drink alcohol faster than your liver can remove it from your system. Alcohol intoxication affects your judgment and coordination. Very high blood alcohol levels can cause coma, very slow breathing and even . If you drink alcohol every day, this may gradually cause permanent damage to your liver, brain, heart, pancreas and other organs. Alcohol use during may cause permanent damage to the growing baby. Home Care: Do not drink any more alcohol. DO NOT DRIVE until all effects of the alcohol have worn off. Get lots of rest over the next few days. Drink plenty of water and other non-alcoholic liquids. Try to eat regular meals. If you have been drinking heavily on a daily basis, you may go through alcohol withdrawl. This is also called the shakes or DTs. The usual symptoms last 3 to 4 days and may include nervousness, shakiness, nausea, sweating or sleeplessness. During this time, it is best that you stay with family or friends who can help and support you. You can also admit yourself to a residential detox program. If your symptoms are severe, contact your doctor for medicines to help. Follow Up: If alcohol is causing a problem in your life, these and other organizations can help you: Alcoholics Anonymous offers support through a self-help fellowship. There are no dues or fees. See the Yellow Pages and call for time and place of meetings. www.aa.org [employer] offers support to families of alcohol users. 528.805.7130 www.al-anon.org National [place] On Alcoholism And Drug Dependence 342-377-4389 www.ncadd.org There are also inpatient or residential alcohol detox programs. Check the Internet or phonebook Yellow Pages under Drug Abuse & Treatment Centers. Get Prompt Medical Attention if any of the following occur: there) You have been given the following additional information: Alcohol Intoxication (Electronically signed by Bernardo Santana MD 07/29/2016 19:25)
--- NOTE | 2016-07-29 19:26 | ED MAR SUMMARY ---
..... Medication Administration Record [facility] [address] [place] [address] Patient: MAHAMED CONNELL Visit ID: [id number] 61y, F Weight: 90.7 kg Height/Length: 67 in BMI: 31.3 ALLERGIES: Ibuprofen, Paxil, PROzac, Tylenol, Ultram Given 08:57 07/25/2016 Barbie Goodwin RLala Medication Administered: ZOFRAN ODT [PO] (ONDANSETRON), Dose: 4 mg PO. Medication Ordered: Zofran ODT PO 4 mg (NOW). Given 09:25 07/25/2016 Esther Salazar RLala Medication Administered: ATIVAN [PO] (LORAZEPAM), Dose: 1 mg Tablets PO. Medication Ordered: Ativan PO 1 mg (NOW).
--- NOTE | 2016-07-29 19:26 | ED MAR SUMMARY ---
..... Medication Administration Record [facility] [address] [place] [address] Patient: MAHAMED CONNELL Visit ID: [id number] 61y, F Weight: 90.7 kg Height/Length: 67 in BMI: 31.3 ALLERGIES: Ibuprofen, Paxil, PROzac, Tylenol, Ultram Given 08:57 07/25/2016 Barbie Goodwin RLala Medication Administered: ZOFRAN ODT [PO] (ONDANSETRON), Dose: 4 mg PO. Medication Ordered: Zofran ODT PO 4 mg (NOW). Given 09:25 07/25/2016 Esther Salazar RLala Medication Administered: ATIVAN [PO] (LORAZEPAM), Dose: 1 mg Tablets PO. Medication Ordered: Ativan PO 1 mg (NOW).
--- NOTE | 2016-07-29 19:26 | ED MED RECONCILIATION SUMMARY ---
Patient: MAHAMED CONNELL Medication Reconciliation Report [facility] VisitID: [id number] [address] [place] [address] 61y, F Registration Date/Time: 07/24/2016 Weight: 90.7 kg Height/Length: 67 in. BMI: 31.3 ALLERGIES: Ibuprofen, Paxil, PROzac, Tylenol, Ultram The patient's Home Medications are listed below: CONTINUE TAKING THE FOLLOWING MEDICATIONS: ASA Oral 81 mg Atenolol Oral (25 mg) 3 tablets, 2x a day LamoTRIgine Oral 1 200mg tab am 2 tabs HS Lidocaine patch 12h on 12h off Lisinopril Oral 40 mg, daily Propranolol HCl Oral 20 mg, 2x a day Solifenacin Succinate Oral 10mg, bid TraZODone HCl Oral The source(s) of the original Home Medication information: Not obtained. The following Medications were given to the patient in the Emergency Department: Zofran ODT [PO] PO 4 mg, administered: 07/25/2016 8:57:00 AM Ativan [PO] PO 1 mg, administered: 07/25/2016 9:25:00 AM The following Medications were prescribed to the patient: None.
== END 2016-07-25 09:35 | disposition home or self-care (01) ==
LOC: ED SRH 22:21
DX: F10.229 Alcohol dependence with intoxication, unspecified (principal); I10 Essential (primary) hypertension; Z79.899 Other long term (current) drug therapy; F17.210 Nicotine dependence, cigarettes, uncomplicated; Z79.82 Long term (current) use of aspirin
CPT/HCPCS: 90100; 92010; 92235; 95059